=== PATIENT | male | born 1945 | race Caucasian/White ===

== ENCOUNTER 2024-05-11 14:38 | Outpatient (REF) | payer OTHER, SELFPAY ==
[2024-05-11 15:06] LABS: MANUAL DIFF FLAG NO
[2024-05-11 15:24] LABS: Basophils Percent Auto 0.9 % (0-2); Eosinophils Absolute Auto 0.1 X10*3/uL (0.0-0.4); Hematocrit 41.8 % (42.0-52.0); Hemoglobin 13.7 g/dl (14.0-18.0); Imm Gran Abs Auto 0.01 X10*3/uL (0.00-0.03); Imm Gran Pct Auto 0.2 % (0.0-0.4); Lymphocytes Absolute Auto 1.6 X10*3/uL (1.2-4.9); Lymphocytes Percent Auto 36.3 % (20-40); Mean Corpuscular HGB Conc 32.8 g/dl (31.0-36.0); Mean Corpuscular Hemoglobin 29.7 pg (27.0-33.0); Mean Corpuscular Volume 90.7 fL (80.0-98.0); Monocytes Absolute Auto 0.5 X10*3/uL (0.1-1.2); Neutrophils Absolute Auto 2.1 x10*3/uL (2.0-8.3); Neutrophils Percent Auto 47.6 % (45-73); Platelet Count 195 X10*3/uL (160-400); Red Blood Count 4.61 X10*6/uL (4.60-5.80); Red Cell Distribution Width 14.1 % (11.0-16.0); White Blood Count 4.3 X10*3/uL (4.8-10.8)
[2024-05-11 17:12] LABS: Anion Gap 11 (12-20); Blood Urea Nitrogen 12 mg/dL (9-16); Calcium 8.7 mg/dL (8.4-10.2); Carbon Dioxide 25 mmol/L (22-29); Chloride 111 mmol/L (96-108); Estimated Glomerular Filt Rate > 60; Glucose Random 89 mg/dL (60-115); Sodium 143 mmol/L (135-145)
[2024-05-11 17:32] LABS: TSH reflex Free T4 2.34 uIU/mL (0.32-4.0)
[2024-05-11 17:39] LABS: Folate 6.1 ng/mL (> or = 4.0); Vitamin B12 461 pg/mL (200-900)
== END 2024-05-11 14:39 | disposition home or self-care (01) ==
LOC: HO.LAB 14:38
PROVIDERS: PCP Internal Medicine; Visit Provider Psychiatry & Neurology Neurology
DX: G31.84 Mild cognitive impairment of uncertain or unknown etiology (principal)
CPT/HCPCS: 36415; 80048; 82607; 82746; 84443; 85025

== ENCOUNTER 2024-05-30 08:20 | Outpatient (REF) | payer OTHER, SELFPAY ==
--- NOTE | ~2024-05-30 | MR_ITS ---
EXAMINATION: MR BRAIN WITHOUT IV CONTRAST HISTORY: Mild cognitive impairment TECHNIQUE: Sagittal T1, and axial T1, FLAIR, T2, gradient echo, and diffusion weighted MR images of the brain were obtained. COMPARISON: None FINDINGS: There is diffuse prominence of the ventricular system and cortical sulci, consistent with atrophy. There is a fairly similar degree of atrophy in the frontal, parietal, and temporal lobes. Periventricular and subcortical white matter hyperintensities are noted on the FLAIR and T2-weighted images which are nonspecific, but often seen in the setting of small vessel ischemic disease. There is no mass effect or midline shift. There are numerous punctate foci of magnetic susceptibility artifact within the supratentorial compartment bilaterally, compatible with hemosiderin. There is no evidence of acute intracranial hemorrhage.. There are no foci of restricted diffusion. Normal vascular flow voids are noted in the basilar and carotid arteries. The visualized paranasal sinuses are clear. 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 Numerous punctate foci of hemosiderin scattered throughout the supratentorial compartment. Electronically signed by: Tristin Reynoso MD 05/31/2024 11:52 AM EST
== END 2024-05-30 08:21 | disposition home or self-care (01) ==
LOC: HO.MRI 08:20
PROVIDERS: PCP Internal Medicine; Visit Provider Psychiatry & Neurology Neurology
DX: G31.84 Mild cognitive impairment of uncertain or unknown etiology (principal)
CPT/HCPCS: 70551

== ENCOUNTER → 2024-05-30 08:35 | Outpatient (BNV) | payer OTHER, SELFPAY | PROVIDERS: PCP Internal Medicine; Visit Provider Radiology Diagnostic Radiology | DX: G31.9 Degenerative disease of nervous system, unspecified (principal); R90.82 White matter disease, unspecified | CPT/HCPCS: 70551 ==

== ENCOUNTER 2024-11-16 14:51 | Outpatient (AMB) | payer OTHER, SELFPAY ==
--- NOTE | 2024-11-16 14:47 | A.OFFVIS_ITS ---
Intake Visit Reasons: 2m MCI Allergies No Known Allergies Allergy (Verified 11/16/24 14:54) HPI Comments Details: The patient is a 79-year-old male presenting with concerns about memory and cognitive decline. He does not personally sense significant impairment, but family members and colleagues have observed a decrease in his cognitive sharpness over the past few years. The patient was historically adept at navigating unfamiliar areas but recently needed GPS assistance in new locations. He remains functional in his business and daily life. Previous imaging indicated brain atrophy, prompting further evaluation with an upcoming PET scan. There have been no prior treatments or interventions for cognitive issues, and he does not report any new symptoms affecting his job performance. 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 He is still driving fine. He sleeps 6-7 hours a day. He has no sleep apnea. He walks three quarters of a mile to work and has not seen a decline in his work abilities or in his business skills. There is no family history of dementia. Mother lived to 90, and the father in the 80s. ?Nephew, who is a surgical oncologist says he has noted some decline in his cognitive abilities. 06/04/24 EEG- WNL ?05/30/24 MRI : Diffuse cerebral atrophy and microvacsular changes ?05/11/24 Labs normal. 08/31/24 MMSE 27/30, MOCA 14 [facility] Medical History (Updated 11/16/24 @ 15:11 by Nasrin Hurtado MD) Alzheimer disease MCI (mild cognitive impairment) Social History (Updated 11/15/24 @ 17:43 by Monalisa Spann MA) Patient Tobacco Use Status: Never used Tobacco Review of Systems Const Details: ?General/Constitutional:? Change in appetitedenies.? Chillsdenies.? Fatiguedenies.? Feverdenies.? Weight gaindenies.? Weight lossdenies. ???Sleep:? Difficulty getting to sleepdenies.? Difficulty maintaining sleepdenies?.? Urge to move legsdenies.? Teeth grindingdenies.? Shouting or Kicking during sleep denies.? Abnormal behavior during sleepdenies.? Excessive sleepdenies.? Snoring denies.? Daytime sleepinessdenies. ???Respiratory:? Shortness of breathdenies.? Chest paindenies.? Coughdenies. ???Cardiovascular:? Chest pain at restdenies.? Chest pain with exertiondenies.? Claudicationdenies .? Dizzinessdenies.? Fluid accumulation in the legsdenies.? Irregular heartbeat denies.? Palpitationsdenies. ???Gastrointestinal:? Abdominal paindenies.? Constipationdenies.? Diarrheadenies.? Difficulty swallowingdenies.? Heartburndenies.? Nauseadenies.? Rectal bleedingdenies. ???Genitourinary:? Frequent urinationdenies.? Urgencydenies.? Incontinencedenies.? Erectile Dysfunctiondenies. ???Musculoskeletal:? Neck paindenies.? Back paindenies.? Muscle achesdenies.? Painful jointsdenies.? Sciaticadenies.? Weaknessdenies. ???Neurologic:? Difficulty swallowingdenies.? Balance difficultydenies.? Coordinationnormal.? Difficulty speakingdenies.? Dizzinessdenies.? Faintingdenies.? Gait abnormality denies.? Headachedenies.? Loss of strengthdenies.? Loss of use of extremity denies.? Low back paindenies.? Memory lossdenies.? Seizuresdenies.? Ticsdenies.? Tingling/Numbnessdenies.? Transient loss of visiondenies.? Tremordenies. ???Psychiatric:? Anxietydenies.? Auditory/visual hallucinationsdenies.? Delusionsdenies.? Depressed mooddenies.? Stressorsdenies.? Substance abusedenies.? Suicidal thoughtsdenies. Physical Exam Neuro Other: Neurological: Abnormal neurological findings:??none.?Mental Status:??alert and oriented X 3,?Normal attention, orientation, memory and affect.?Cranial Nerves:??Pupils are equal, round and reactive to light. Fundoscopy shows normal disc bilaterally. External occular muscles are intact. Visual murray are full, no ptosis. Face is symmetrical, no facial weakness or droop. Facial sensations are normal. Tongue protrudes in midline. Palate elevates symmetrically. Shoulder shrugging is normal..?Motor Examination:??Normal muscle tone, bulk and strength,?No atrophy or fasciculations,?No drift of the extended upper extremities,?Deep tendon reflexes are 2+?,?Plantars are flexor?.?Straight Leg Raising:??90 degrees.?Sensory Exam:??Normal light touch, temperature, pinprick, vibration and joint-position sensations?,?Rhomberg sign is absent.?Coordination:??no ataxia,?no titubation,?zmklqr-lv-yjtg, oxzw-mnku-xbll test and rapid alternating movements were normal.?Gait Exam:??Within normal limits.?Cerebellar Signs:??Gpmsoq-ak-ttsk and abid-yo-rdro is normal,?no dysdiadochokinesia?.?Ext rapyramidal System:??No tremor, rigidity with normal facial expressions,?No bradykinesia, no bradyphrenia. Normal arm swing and posture. No propulsion or retropulsion.?Speech:??Normal,?no dysphasia or dysarthria..? Mini Mental Status Exam: Level of Consciousness:??Alert.?Orientation:??Knows correct year, month, date, day and season,?Knows correct city, county and state. Knows correct location and floor.?Registration:??Able to register 3 objects.?Attention:??Serial 7's performed accurately.?Recall:??Able to recall 3 out of 3 objects.?Language:??Normal spontaneous speech, fluency, repetition,naming, comprehension, reading and writing.?Total Score:??30/30.? General Examination: GENERAL APPEARANCE:??normal,?in no acute distress.?HEART:??S1, S2 normal,?no murmurs.?LUNGS:??clear anteriorly and posteriorly.?MUSCULOSKELETAL:??normal.?EXTREMITIES:??no edema.?PSYCH:??alert, oriented,?cognitive function intact,?cooperative with exam.? Assessment & Plan Assessment & Plan (1) MCI (mild cognitive impairment): Code(s): G31.84 - Mild cognitive impairment of uncertain or unknown etiology Category: Medical (2) Alzheimer disease: Code(s): G30.9 - Alzheimer's disease, unspecified; F02.80 - Dementia in other diseases classified elsewhere, unspecified severity, without behavioral disturbance, psychotic disturbance, mood disturbance, and anxiety Category: Medical Plan PET scan is scheduled for 11/22/24. Nephew Ryan will coordinate intake interview. Coding Level of Care Code Est Pt Level 4 (52809) Diagnoses MCI (mild cognitive impairment) G31.84 Alzheimer disease G30.9; F02.80
--- OUTSIDE RECORDS SUMMARY | 2024-11-16 15:35 | XMS_ITS | Clinical Summary ---
Author Organization [address] Address [address] [place] [address] Phone Care Team Providers Care Manager Car Name Role Phone Chintan Moralez Primary Care Provider [phone] Social History Tobacco Use Types Packs/Day Years Used Date Smoking Tobacco: Never Assessed Sex and Gender Information Value Date Recorded Sex Assigned at Not on file Legal Sex Male 11:51 AM EST Gender Identity Not on file Sexual Orientation Not on file Plan of Treatment Health Maintenance Due Date Last Done Comments DTaP,Tdap,and Td Vaccines (1 - Tdap) 10/22/1966 Pneumococcal Vaccine: 50+ Ye ars (1 of 1 - PCV) 10/22/1997 Zoster Vaccines (1 of 2) 10/22/1997 Depression Screening 04/09/2022 Falls Risk Assessment 04/09/2022 Hepatitis C Screening 04/09/2022 Social Influencers of Health Screening 04/09/2022 RSV Immunization Adult Patie nts (1 - 1-dose 75+ series) 10/22/2022 COVID-19 Vaccine ( - 2023-2 5 season) 2024 Influenza Vaccine (#1) 2025 Cholesterol Screening (Lipid Panel) 06/22/2029 06/22/2024 HIB Vaccines Aged Out No longer eligi ble based on patient's age to complete this topic HPV Vaccines Aged Out No longer eligi ble based on patient's age to complete this topic Hepatitis A Vaccines Aged Out No long er eligible based on patient's age to complete this topic Hepatitis B Vaccines Aged Out No long er eligible based on patient's age to complete this topic IPV Vaccines Aged Out No longer eligi ble based on patient's age to complete this topic MMR Vaccines Aged Out No longer eligi ble based on patient's age to complete this topic Meningococcal ACWY Vaccine Aged Out N o longer eligible based on patient's age to complete this topic Meningococcal B Vaccine Aged Out No l onger eligible based on patient's age to complete this topic RSV Immunization Patients Un michele 20 months Aged Out No longer eligible b ased on patient's age to complete this topic Varicella Vaccines Aged Out No longer eligible based on patient's age to complete this topic Procedures Procedure Name Priority Date/Time Associated Diagnosis Comments LIPID PANEL WITH REFLEX TO DIRECT LDL Routine 06/22/2024 12:00 AM EST Benign prostatic hyperplasia without lower urinary tract symptoms Vitamin B12 deficiency 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 Encounter for screening for malignant neoplasm of prostate Hyperlipidemia, unspecified Vitamin D deficiency, unspecified Other fatigue from Last 3 Months or Most Recently Relevant to Health Maintenance Results * (ABNORMAL) Lipid panel with reflex to direct LDL (06/22/2024 12:00 AM EST) Cholesterol 218(H) 0 - 200 mg/dL LAB CHEMISTRY METHOD 06/22/2024 7:40 PM [facility] Triglycerides 113 0 - 150 mg/dL LAB CHEMISTRY METHOD 06/22/2024 7:40 PM [facility] HDL 44 >=40 mg/dL LAB CHEMISTRY METHOD 06/22/2024 7:40 PM [facility] LDL Calculated 151(H) 0 - 100 mg/dL LAB CHEMISTRY METHOD 06/22/2024 7:40 PM [facility] VLDL Cholesterol Desmond 22.6 mg/dL LAB CHEMISTRY METHOD 06/22/2024 7:40 PM [facility] Non HDL Chol. (LDL+VLDL) 174(H) <145 mg/dL LAB CHEMISTRY METHOD 06/22/2024 7:40 PM [facility] Chol/HDL Ratio 5.0(H) 0.0 - 4.4 LAB CHEMISTRY METHOD 06/22/2024 7:40 PM [facility] Blood Venous blood specimen / Unknown 06/22/2024 06/22/2024 5:57 PM EST Chitnan BUTLER LAB BLOOD ORDERABLES Final Res ult [facility] [address] [place] [address], from Last 3 Months or Most Recently Relevant to Health Maintenance Insurance MEDICARE [facility] [address] [place] [address] Care Teams Manager Car Relationship Specialty Start Date End Date Chintan Moralez PA [address] [address] PCP - General Primary Care 06/22/24
--- OUTSIDE RECORDS SUMMARY | 2024-11-16 15:35 | XMS_ITS | Patient Health Record ---
Author Organization [facility] Address [address] [place] [address] Care Team Providers Care Tow Driver Name Role Phone Dominik Lemon MD Primary Care Provider Unav ailable Lakeisha Montes Unavailable [phone] Allergies Allergen (clinical drug ingredient) Drug/Non Drug Allergy documented on EMR Reaction Allergy Type Onset Date Status Shellfish (FN) shrimp,shellfish (uncoded) Unknown Allergy Active Reason For Referral No Information Social History Tobacco Use: Social History Observation Description Date Details (start date - stop date) Former Smoker NA - NA Tobacco Use/Smoking Question Answer Notes Are you a: former smoker Additional Findings: Tobacco User Heavy cigarett e smoker (20-39 cigs/day) Additional Findings: Tobacco Non-User Current no n-smoker Alcohol Screen Question Answer Notes Did you have a drink containing alcohol in the p ast year? Yes Points 0 Interpretation Negative Tobacco use other than smoking: Question Answer Notes Are you an other tobacco user? 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
--- OUTSIDE RECORDS SUMMARY | 2024-11-16 15:35 | XMS_ITS | Clinical Summary ---
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); Parkinson's disease without dyskinesia or fluctuating manifestations (HCC); 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 (HCC); Vitamin B12 deficiency (non anemic) 09/24/2024 2:00 PM EDT Evaluation [facility] [address] [place] [phone] Sanchez Rodriguez MA 09/17/2024 1:30 PM EDT Office Visit [facility] [address] [place] [phone] Nikki Grace NP MCI (mild cognitive impairment) (Primary Dx) from Last 3 Months Family History Medical History Relation Name Comments Heart disease Mother Relation Name Status Comments Father Mother Social History Tobacco Use Types Packs/Day Years Used Date Smoking Tobacco: Never Smokeless Tobacco: Never Tobacco Cessation:Counseling Given: Not Answered Alcohol Use Standard Drinks/Week Comments Yes 0 (1 standard drink = 0.6 oz pur e alcohol) Sex and Gender Information Value Date Recorded Sex Assigned at Male 09/08/2024 10:56 AM EDT Legal Sex Male 10:48 AM EDT Gender Identity Male 09/08/2024 10:56 AM EDT Sexual Orientation Not on file Last Filed Vital Signs Vital Sign Reading Time Taken Comments Blood Pressure 137/73 09/24/2024 2:49 PM EDT Pulse 58 09/24/2024 2:49 PM EDT Temperature 36.8 C (98.3 F) 09/24/2024 2:49 PM EDT Respiratory Rate 18 09/24/2024 2:49 PM EDT Oxygen Saturation 97% 09/17/2024 3:13 PM EDT Inhaled Oxygen Concentration - - Weight 86.2 kg (190 lb) 09/17/2024 3:13 PM EDT Height 172.7 cm (5' 8 ) 09/17/2024 3:13 PM EDT Body Mass Index 28.89 09/17/2024 3:13 PM EDT Plan of Treatment Health Maintenance Due Date Last Done Comments Hepatitis C Screening 1945 DTaP,Tdap,and Td Vaccines (1 - Tdap) 10/22/1969 Pneumococcal Vaccine: 50+ Ye ars (1 of 1 - PCV) 10/22/1997 Zoster Vaccines (1 of 2) 10/22/1997 RSV Vaccine (60+ years old a nd patients) (1 - 1-dose 75+ series) 10/22/2022 COVID-19 Vaccine ( - 2023-2 5 season) 2024 Alcohol/Substance Use Screening 05/12/2024 Depression Screening and Follow-Up 05/12/2024 Health Care Proxy Review 05/12/2024 Social Drivers of Health Darlin ual Screening 05/12/2024 Influenza Vaccine (#1) 2025 Hepatitis B Vaccines Aged Out No long er eligible based on patient's age to complete this topic Procedures * Due to [place] [employer] law, this organization might not be sharing negative HIV tests. Procedure Name Priority Date/Time Associated Diagnosis Comments TSH Routine 09/24/2024 1:50 PM EDT MCI (mild cognitive impairment) SYPHILIS ANTIBODY W/REFLEX TO RPR (DIAGNOSIS) TITER & CONFIRMATION Routine 09/24/2024 1:50 PM EDT MCI (mild cognitive impairment) from Last 3 Months Results * Due to [place] [employer] law, this organization might not be sharing negative HIV tests. * Syphilis Antibody w/Reflex to RPR (Diagnosis) Titer & Confirmation (09/24/2024 1:50 PM EDT) T. Pallidum AB NEGATIVE NEGATIVE 09/27/2024 11:08 PM EDT [facility] Comment: No antibodies to T. pallidum (the agent causing syphilis) were detected in the specimen. This result, however, does not exclude very recent T. pallidum infection; testing of a second specimen, collected 2-4 weeks after this specimen, is recommended if the index of suspicion for recent infection is high. Blood Structure of peripheral vein / Unknown Venipuncture / Unknown 09/24/2024 1:50 PM EDT 09/24/2024 2:48 PM EDT Narrative [facility] - 09/27/2024 11:08 PM EDT [facility] Received Date:[id number] us Kaitlynn Nuñez MD LAB BLOOD ORDERABLES Final Res ult [facility] [address] [facility] [address], [place] [address], [place] [phone] Photo Rankr [facility] [address] [facility] [address] Floor, [place] [address], [place] [phone] * TSH (09/24/2024 1:50 PM EDT) TSH 1.920 0.280 - 3.890 uIU/mL 09/24/2024 3:31 PM EDT [facility] Blood Structure of peripheral vein / Unknown Venipuncture / Unknown 09/24/2024 1:50 PM EDT 09/24/2024 2:49 PM EDT us Kaitlynn Nuñez MD LAB BLOOD ORDERABLES Final Res ult [facility] [address] [place] [address], from Last 3 Months Insurance [facility] Care Teams Metal Bonding Press Operator Relationship Specialty Start Date End Date Dominik Lemon [address] [place] [id number] PCP - General Internal Medicine 09/08/24
== END 2024-11-16 15:18 | disposition home or self-care (01) ==
PROVIDERS: PCP Internal Medicine; Visit Provider Psychiatry & Neurology Neurology
DX: G30.9 Alzheimer's disease, unspecified (principal); F02.80 Dementia in other diseases classified elsewhere, unspecified severity, without behavioral disturbance, psychotic disturbance, mood disturbance, and anxiety
CPT/HCPCS: 99214

== ENCOUNTER 2025-01-25 15:03 | Outpatient (AMB) | payer OTHER, SELFPAY ==
--- NOTE | 2025-01-25 14:48 | A.OFFVIS_ITS ---
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 He is now home since 01/24/25 with 24 hr care. Is getting better. He is on ASA and Plavix. The patient is a 79-year-old male presenting with concerns about memory and cogn itive decline. He does not personally sense significant impairment, but family members and colleagues have observed a decrease in his cognitive sharpness over the past few years. The patient was historically adept at navigating unfamiliar areas but recently needed GPS assistance in new locations. He remains functional in his business and daily life. Previous imaging indicated brain atrophy, prompt ing further evaluation with an upcoming PET scan. There have been no prior treatments or interventions for cognitive issues, and he does not report any new symptoms affecting his job performance. 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 He is still driving fine. He sleeps 6-7 hours a day. He has no sleep apnea. He walks three quarters of a mile to work and has not seen a decline in his work abilities or in his business skills. There is no family history of dementia. Mother lived to 90, and the father in the 80s. ?Nephew, who is a surgical oncologist says he has noted some decline in his cognitive abilities. 06/04/24 EEG- WNL ?05/30/24 MRI : Diffuse cerebral atrophy and microvacsular changes ?05/11/24 Labs normal. 08/31/24 MMSE 27/30, MOCA 14 [facility] Medical History (Updated 01/25/25 @ 15:33 by Nasrin Hurtado MD) Alzheimer disease MCI (mild cognitive impairment) Social History (Updated 11/15/24 @ 17:43 by Monalisa Spann MA) Patient Tobacco Use Status: Never used Tobacco Physical Exam Neuro Other: Neurological: Abnormal neurological findings:??Mental Status:??alert and oriented X person an d place but not to month. He knows the year but not the date. He is quite forgetful and repetitive with short-term memory problems 1/3 recall.?Normal attention, and affect.?Cranial Nerves:??Pupils are equal, round and reactive to light. Fundoscopy shows normal disc bilaterally. External occular muscles are intact. Visual murray are full, no ptosis. Face is symmetrical, no facial weakness or droop. Facial sensations are normal. Tongue protrudes in midline. Palate elevates symmetrically. Shoulder shrugging is normal..?Motor Examination:??Subtle downward drift of the left upper extremity with weakness of the left service director. Normal muscle tone, bulk and strength otherwise,?No atrophy or fasciculations,??Deep tendon reflexes are 2+?,?Plantars are flexor?.?Straight Leg Raising:??90 degrees.?Sensory Exam:??Normal light touch, temperature, pinprick, vibration and joint-position sensations?,?he is in a wheelchair. He gets around with a walker at home with supervision.?Coordination:??no ataxia,?no titubation,?ilabgr-vj-[id number] mildly impaired on the left, gyts-klaj-vphj test and rapid alternating movements were normal.?Gait Exam:? Wheelchair.?Cerebellar Signs:??Extrapyramidal System:??No tremor, rigidity with normal facial expressions,?No bradykinesia, no bradyphrenia. Normal arm swing and posture. ?Speech:??Normal,?no dysphasia or dysarthria..? Mini Mental Status Exam: Level of Consciousness:??Alert.?Orientation:??Knows correct year only, not day and season,?Knows correct city, county and state. Knows correct location and floor.?Registration:??Able to register 3 objects.?Attention:??Serial 7's performed accurately.?Recall:??Able to recall 1 out of 3 objects.?Language:??Normal spontaneous speech, fluency, repetition,naming, comprehension, reading and writing.?Total Score:??24/30.? General Examination: GENERAL APPEARANCE:??normal,?in no acute distress.?HEART:??S1, S2 normal,?no murmurs.?LUNGS:??clear anteriorly and posteriorly.?MUSCULOSKELETAL:??normal.?EXTREMITIES:??no edema.?PSYCH:??alert, oriented,?cognitive function intact,?cooperative with exam.? Cognition (Neuro): abnormal cognition Results Reviewed Results Reviewed: 12/02/24 PET scan shows moderate to frequent amyloid plaques. Assessment & Plan Assessment & Plan (1) Alzheimer disease: Code(s): G30.9 - Alzheimer's disease, unspecified; F02.80 - Dementia in other diseases classified elsewhere, unspecified severity, without behavioral disturbance, psychotic disturbance, mood disturbance, and anxiety Category: Medical (2) Stroke: Code(s): I63.9 - Cerebral infarction, unspecified Category: Medical Plan Records from [facility] regarding thalamic stroke. Continue current meds. He needs 24 hour supervision. No driving. Went over the results of his PET scan with the family. He has not been informed fully. Coding Level of Care Code Est Pt Level 4 (25536) Diagnoses Alzheimer disease G30.9; F02.80 Stroke I63.9
--- OUTSIDE RECORDS SUMMARY | 2025-01-25 18:36 | XMS_ITS | Clinical Summary ---
Author Organization [facility] Address [address] [place] [address] Care Team Providers Care Freight Loader Name Role Phone Dominik Lemon Primary Care Provider Allergies No known active allergies Medications carbidopa-levodo pa ER/CR (SINEMET ER/CR) 50-200 mg tablet Take 1 tablet by mouth 2 times a day. 60 tablet 11 09/24/2024 Active Active Problems Problem Noted Date Diagnosed Date Alzheimer's disease 09/24/2024 Family History Medical History Relation Name Comments [...] patients) (1 - 1-dose 75+ series) 10/22/2022 Alcohol/Substance Use Screening 05/12/2024 Depression Screening and Follow-Up 05/12/2024 Health Care Proxy Review 05/12/2024 Social Drivers of Health Darlin ual Screening 05/12/2024 COVID-19 Vaccine (1 - 2023-2 5 season) 2025 Influenza Vaccine (#1) 2025 Hepatitis B Vaccines Aged Out No long er eligible based on patient's age to complete this topic Insurance [facility] Care Teams Freight Loader Relationship Specialty Start Date End Date Dominik Lemon [address] [place] [id number] PCP - General Internal Medicine 09/08/24
--- OUTSIDE RECORDS SUMMARY | 2025-01-25 18:37 | XMS_ITS ---
Author Name [facility] Organization Unknown Care Team Organization Name Specialty Phone Email Start Date End Da te [facility] 11/27/202311/2023 [facility] 03/19/2022
--- OUTSIDE RECORDS SUMMARY | 2025-01-25 18:37 | XMS_ITS | Encounter Summary ---
Author Organization [facility] Address [address] [place] [address] Care Team Providers Care Purchasing Administrative Assistant Name Role Phone Chintan Moralez Primary Care Provider [phone] Encounter Details Date Type Department Care Team (Late st Contact Info) Description 01/21/2025 Lab Requisition [facility] [address] [facility] [place] [address] Amandeep Yap PA [address] [facility] [address] [place] [address] Encounter for other general examination Social History Tobacco Use Types Packs/Day Years Used Date Smoking Tobacco: Never Assessed Sex and Gender Information Value Date Recorded Sex Assigned at Not on file Legal Sex Male 11:51 AM EST Gender Identity Not on file Sexual Orientation Not on file documented as of this encounter Plan of Treatment Not on file documented as of this encounter Procedures Procedure Name Priority Date/Time Associated Diagnosis Comments CBC WITH AUTO DIFFERENTIAL Routine 01/21/2025 5:25 AM EDT Encounter for other general examination CBC AND DIFFERENTIAL Routine 01/21/2025 5:25 AM EDT Encounter for other general examination THYROID STIMULATING HORMONE Routine 01/21/2025 5:25 AM EDT Encounter for other general examination COMPREHENSIVE METABOLIC PANEL Routine 01/21/2025 5:25 AM EDT Encounter for other general examination documented in this encounter Results * (ABNORMAL) CBC auto differential (01/21/2025 5:25 AM EDT) [facility] WBC 5.0 4.8 - 10.8 K/mcL LAB HEMETOLOGY METHOD 01/21/2025 10:45 AM [facility] RBC 4.50 4.50 - 5.50 M/mcL LAB HEMETOLOGY METHOD 01/21/2025 10:45 AM [facility] Hemoglobin 13.1(L) 13.5 - 17.5 g/dL LAB HEMETOLOGY METHOD 01/21/2025 10:45 AM [facility] Hematocrit 40.5(L) 42.0 - 54.0 % LAB HEMETOLOGY METHOD 01/21/2025 10:45 AM [facility] MCV 90.6 79.0 - 98.0 FL LAB HEMETOLOGY METHOD 01/21/2025 10:45 AM [facility] MCH 29.3 27.0 - 32.0 pcg LAB HEMETOLOGY METHOD 01/21/2025 10:45 AM [facility] MCHC 32.3 32.0 - 37.0 g/dL LAB HEMETOLOGY METHOD 01/21/2025 10:45 AM [facility] RDW 13.5 11.0 - 15.0 % LAB HEMETOLOGY METHOD 01/21/2025 10:45 AM [facility] Platelets 367 130 - 400 K/[facility] LAB HEMETOLOGY METHOD 01/21/2025 10:45 AM [facility] MPV 11.2(H) 7.0 - 11.0 FL LAB HEMETOLOGY METHOD 01/21/2025 10:45 AM [facility] NRBC 0.0 <1.0 % LAB HEMETOLOGY METHOD 01/21/2025 10:45 AM [facility] NRBC Absolute 0.00 <0.10 K/[facility] LAB HEMETOLOGY METHOD 01/21/2025 10:45 AM [facility] Neutrophils Relative 63.4 % LAB HEMETOLOGY METHOD 01/21/2025 10:45 AM [facility] Lymphocytes Relative 22.0 % LAB HEMETOLOGY METHOD 01/21/2025 10:45 AM [facility] Monocytes Relative 11.0 % LAB HEMETOLOGY METHOD 01/21/2025 10:45 AM [facility] Eosinophils Relative 2.2 % LAB HEMETOLOGY METHOD 01/21/2025 10:45 AM [facility] Basophils Relative 0.8 % LAB HEMETOLOGY METHOD 01/21/2025 10:45 AM [facility] Immature Granulocytes Relative 0.6 % LAB HEMETOLOGY METHOD 01/21/2025 10:45 AM [facility] Neutrophils Absolute 3.17 1.50 - 7.00 K/mcL LAB HEMETOLOGY METHOD 01/21/2025 10:45 AM [facility] Lymphocytes Absolute 1.10 1.00 - 5.00 K/mcL LAB HEMETOLOGY METHOD 01/21/2025 10:45 AM [facility] Monocytes Absolute 0.55 0.20 - 1.00 K/mcL LAB HEMETOLOGY METHOD 01/21/2025 10:45 AM [facility] Eosinophils Absolute 0.11 0.00 - 0.50 K/mcL LAB HEMETOLOGY METHOD 01/21/2025 10:45 AM [facility] Basophils Absolute 0.04 0.00 - 0.20 K/mcL LAB HEMETOLOGY METHOD 01/21/2025 10:45 AM [facility] Immature Granulocytes Absolute 0.03 0.00 - 0.03 K/mcL LAB HEMETOLOGY METHOD 01/21/2025 10:45 AM [facility] Blood Venous blood specimen / Unknown Venipuncture / Unknown 01/21/2025 5:25 AM EDT 01/21/2025 9:21 AM EDT Amandeep BUTLER LAB BLOOD ORDERABLES Final R esult [facility] [address] [place] [address], [place] [phone] * Thyroid stimulating hormone (01/21/2025 5:25 AM EDT) TSH 1.55 0.40 - 4.00 mcIU/mL LAB CHEMISTRY METHOD 01/21/2025 12:04 PM EDT [facility] Blood Venous blood specimen / Unknown Venipuncture / Unknown 01/21/2025 5:25 AM EDT 01/21/2025 9:21 AM EDT Amandeep BUTLER LAB BLOOD ORDERABLES Final R esult [facility] [address] [place] [address], [place] [phone] * (ABNORMAL) Comprehensive metabolic panel (01/21/2025 5:25 AM EDT) Pathologist [facility] Sodium 137 133 - 145 mmol/L LAB CHEMISTRY METHOD 01/21/2025 11:25 AM EDT [facility] Potassium 5.1 3.5 - 5.5 mmol/L LAB CHEMISTRY METHOD 01/21/2025 11:25 AM EDT [facility] Chloride 102 96 - 110 mmol/L LAB CHEMISTRY METHOD 01/21/2025 11:25 AM EDT [facility] CO2 28 21 - 32 mmol/L LAB CHEMISTRY METHOD 01/21/2025 11:25 AM EDT [facility] Anion Gap 7 3 - 11 LAB CHEMISTRY METHOD 01/21/2025 11:25 AM EDT [facility] Glucose 86 70 - 100 mg/dL LAB CHEMISTRY METHOD 01/21/2025 11:25 AM [facility] BUN 23 5 - 25 mg/dL LAB CHEMISTRY METHOD 01/21/2025 11:25 AM [facility] Creatinine 1.21 0.70 - 1.30 mg/dL LAB CHEMISTRY METHOD 01/21/2025 11:25 AM [facility] eGFR 62 >=60 mL/min/1. 73m2 LAB CHEMISTRY METHOD 01/21/2025 11:25 AM [facility] Comment:Calculation based on the Chronic Kidney Disease Epidemiology Collaboration (CKD-EPI) equation refit without adjustment for race. BUN/Creatinine Ratio 19.0 LAB CHEMISTRY METHOD 01/21/2025 11:25 AM [facility] Calcium 9.0 8.5 - 10.5 mg/dL LAB CHEMISTRY METHOD 01/21/2025 11:25 AM [facility] AST (SGOT) 41 10 - 42 unit/L LAB CHEMISTRY METHOD 01/21/2025 11:25 AM [facility] ALT (SGPT) 87(H) 10 - 60 unit/L LAB CHEMISTRY METHOD 01/21/2025 11:25 AM [facility] Comment:Results verified by repeat testing Alkaline Phosphatase 67 42 - 121 unit/L LAB CHEMISTRY METHOD 01/21/2025 11:25 AM [facility] Total Protein 6.3 6.0 - 8.0 g/dL LAB CHEMISTRY METHOD 01/21/2025 11:25 AM [facility] Albumin 3.2 3.2 - 5.0 g/dL LAB CHEMISTRY METHOD 01/21/2025 11:25 AM [facility] Total Bilirubin 0.4 0.0 - 1.4 mg/dL LAB CHEMISTRY METHOD 01/21/2025 11:25 AM [facility] Blood Venous blood specimen / Unknown Venipuncture / Unknown 01/21/2025 5:25 AM EDT 01/21/2025 9:21 AM EDT us Amandeep BUTLER LAB BLOOD ORDERABLES Final R esult [facility] [address] [place] [address], documented in this encounter Visit Diagnoses Diagnosis Encounter for other general examination documented in this encounter Care Teams Purchasing Administrative Assistant Relationship Specialty Start Date End Date Chintan Moralez PA [address] [address] PCP - General Primary Care 06/22/24 documented as of this encounter
--- OUTSIDE RECORDS SUMMARY | 2025-01-25 18:37 | XMS_ITS | Clinical Summary ---
Author Organization [address] Address [address] [place] [address] Phone Care Team Providers Care Bread Jockey Name Role Phone Chintan Moralez Primary Care Provider [phone] Encounters Date Type Department Care Team Description 01/23/2025 Lab Requisition [facility] [address] [place] [phone] Stephanie Bradley PA Encounter for other general examination 01/21/2025 Lab Requisition [facility] [address] [place] [phone] Amandeep Yap PA Encounter for other general examination 01/06/2025 Lab Requisition [facility] [address] [place] [phone] Farhat Wang PA Encounter for other general examination from Last 3 Months Social History Tobacco Use Types Packs/Day Years Used Date Smoking Tobacco: Never Assessed Sex and Gender Information Value Date Recorded Sex Assigned at Not on file Legal Sex Male 11:51 AM EST Gender Identity Not on file Sexual Orientation Not on file Plan of Treatment Health Maintenance Due Date Last Done Comments Diabetes: Annual Foot Exam 10/22/1957 Diabetes: Annual Retina Eye Exam 10/22/1957 DTaP,Tdap,and Td Vaccines (1 - Tdap) 10/22/1966 Pneumococcal Vaccine: 50+ Years (1 of 2 - PCV) 10/22/1966 Zoster Vaccines (1 of 2) 10/22/1997 Falls Risk Assessment 04/09/2022 Hepatitis C Screening 04/09/2022 Social Influencers of Health Screening 04/09/2022 RSV Immunization Adult Patients (1 - 1-dose 75+ series) 10/22/2022 Depression Screening 05/12/2024 Diabetes: Annual Urine Albumin-Creatinine Ratio (uACR) 12/22/2024 COVID-19 Vaccine ( season) 2025 Influenza Vaccine (#1) 2025 Diabetes: Blood Sugar Control Test (HGBA1C) 06/23/2025 12/21/2024 Diabetes: Annual GFR (Glomerular Filtration Rate) 01/21/2026 01/21/2025, 01/06/2025, 12/21/2024, Additional history exists Cholesterol Screening (Lipid Panel) 12/21/2029 12/21/2024, 06/22/2024 HIB Vaccines Aged Out No longer [...] to complete this topic RSV Immunization Patients Under 20 months Aged Out No longer eligible based on patient's age to complete this topic Varicella Vaccines Aged Out No longer eligible based on patient's age to complete this topic Procedures Procedure Name Priority Date/Time Associated Diagnosis Comments CBC WITH AUTO DIFFERENTIAL Routine 01/23/2025 6:36 AM EDT Encounter for other general examination CBC AND DIFFERENTIAL Routine 01/23/2025 6:36 AM EDT Encounter for other general examination CBC WITH AUTO DIFFERENTIAL Routine 01/21/2025 5:25 AM EDT Encounter for other general examination CBC AND DIFFERENTIAL Routine 01/21/2025 5:25 AM EDT Encounter for other general examination THYROID STIMULATING HORMONE Routine 01/21/2025 5:25 AM EDT Encounter for other general examination COMPREHENSIVE METABOLIC PANEL Routine 01/21/2025 5:25 AM EDT Encounter for other general examination CBC WITH AUTO DIFFERENTIAL Routine 01/06/2025 6:35 AM EDT Encounter for other general examination CBC AND DIFFERENTIAL Routine 01/06/2025 6:35 AM EDT Encounter for other general examination MAGNESIUM Routine 01/06/2025 6:35 AM EDT Encounter for other general examination COMPREHENSIVE METABOLIC PANEL Routine 01/06/2025 6:35 AM EDT Encounter for other general examination PROSTATE SPECIFIC ANTIGEN SCREEN Routine 12/21/2024 2:48 PM EDT Encounter for general adult medical examination with abnormal findings Special screening for malignant neoplasm of prostate Diabetes mellitus (CMS/HCC V24, CMS/HCC V28) Magnesium deficiency Hyperlipidemia MAGNESIUM Routine 12/21/2024 2:48 PM EDT Encounter for general adult medical examination with abnormal findings Special screening for malignant neoplasm of prostate Diabetes mellitus (CMS/HCC V24, CMS/HCC V28) Magnesium deficiency Hyperlipidemia HEMOGLOBIN A1C Routine 12/21/2024 2:48 PM EDT Encounter for general adult medical examination with abnormal findings Special screening for malignant neoplasm of prostate Diabetes mellitus (CMS/HCC V24, CMS/HCC V28) Magnesium deficiency Hyperlipidemia COMPLETE BLOOD COUNT Routine 12/21/2024 2:48 PM EDT Encounter for general adult medical examination with abnormal findings Special screening for malignant neoplasm of prostate Diabetes mellitus (CMS/HCC V24, CMS/HCC V28) Magnesium deficiency Hyperlipidemia LIPID PANEL WITH REFLEX TO DIRECT LDL Routine 12/21/2024 2:48 PM EDT Encounter for general adult medical examination with abnormal findings Special screening for malignant neoplasm of prostate Diabetes mellitus (CMS/HCC V24, CMS/HCC V28) Magnesium deficiency Hyperlipidemia COMPREHENSIVE METABOLIC PANEL Routine 12/21/2024 2:48 PM EDT Encounter for general adult medical examination with abnormal findings Special screening for malignant neoplasm of prostate Diabetes mellitus ([facility] V24, [facility] V28) Magnesium deficiency Hyperlipidemia from Last 3 Months Results * (ABNORMAL) CBC auto differential (01/23/2025 6:36 AM EDT) Only the most recent of3 resultswithin the time period is included. WBC 4.0(L) 4.8 - 10.8 K/mcL LAB HEMETOLOGY METHOD 01/23/2025 10:43 AM [facility] RBC 5.00 4.50 - 5.50 M/mcL LAB HEMETOLOGY METHOD 01/23/2025 10:43 AM [facility] Hemoglobin 14.6 13.5 - 17.5 g/dL LAB HEMETOLOGY METHOD 01/23/2025 10:43 AM [facility] Hematocrit 44.9 42.0 - 54.0 % LAB HEMETOLOGY METHOD 01/23/2025 10:43 AM [facility] MCV 90.2 79.0 - 98.0 FL LAB HEMETOLOGY METHOD 01/23/2025 10:43 AM [facility] MCH 29.3 27.0 - 32.0 pcg LAB HEMETOLOGY METHOD 01/23/2025 10:43 AM [facility] MCHC 32.5 32.0 - 37.0 g/dL LAB HEMETOLOGY METHOD 01/23/2025 10:43 AM [facility] RDW 13.3 11.0 - 15.0 % LAB HEMETOLOGY METHOD 01/23/2025 10:43 AM [facility] Platelets 357 130 - 400 K/mcL LAB HEMETOLOGY METHOD 01/23/2025 10:43 AM [facility] MPV 11.5(H) 7.0 - 11.0 FL LAB HEMETOLOGY METHOD 01/23/2025 10:43 AM [facility] NRBC 0.0 <1.0 % LAB HEMETOLOGY METHOD 01/23/2025 10:43 AM [facility] NRBC Absolute 0.00 <0.10 K/mcL LAB HEMETOLOGY METHOD 01/23/2025 10:43 AM [facility] Neutrophils Relative 56.9 % LAB HEMETOLOGY METHOD 01/23/2025 10:43 AM [facility] Lymphocytes Relative 30.0 % LAB HEMETOLOGY METHOD 01/23/2025 10:43 AM [facility] Monocytes Relative 10.5 % LAB HEMETOLOGY METHOD 01/23/2025 10:43 AM [facility] Eosinophils Relative 1.3 % LAB HEMETOLOGY METHOD 01/23/2025 10:43 AM [facility] Basophils Relative 0.8 % LAB HEMETOLOGY METHOD 01/23/2025 10:43 AM [facility] Immature Granulocytes Relative 0.5 % LAB HEMETOLOGY METHOD 01/23/2025 10:43 AM [facility] Neutrophils Absolute 2.28 1.50 - 7.00 K/mcL LAB HEMETOLOGY METHOD 01/23/2025 10:43 AM [facility] Lymphocytes Absolute 1.20 1.00 - 5.00 K/mcL LAB HEMETOLOGY METHOD 01/23/2025 10:43 AM [facility] Monocytes Absolute 0.42 0.20 - 1.00 K/mcL LAB HEMETOLOGY METHOD 01/23/2025 10:43 AM [facility] Eosinophils Absolute 0.05 0.00 - 0.50 K/mcL LAB HEMETOLOGY METHOD 01/23/2025 10:[address] [facility] Basophils Absolute 0.03 0.00 - 0.20 K/[facility] LAB HEMETOLOGY METHOD 01/23/2025 10:[address] [facility] Immature Granulocytes Absolute 0.02 0.00 - 0.03 K/[facility] LAB HEMETOLOGY METHOD 01/23/2025 10:[address] [facility] Blood Venous blood specimen / Unknown Venipuncture / Unknown 01/23/2025 6:36 AM EDT 01/23/2025 9:59 AM EDT Stephanie BUTLER LAB BLOOD ORDERABLES Final Resu lt [facility] [address] [place] [address], [place] [phone] * Thyroid stimulating hormone (01/21/2025 5:25 AM EDT) Pathologist [facility] TSH 1.55 0.40 - 4.00 mcIU/mL LAB CHEMISTRY METHOD 01/21/2025 12:[address] [facility] Blood Venous blood specimen / Unknown Venipuncture / Unknown 01/21/2025 5:25 AM EDT 01/21/2025 9:21 AM EDT Amandeep BUTLER LAB BLOOD ORDERABLES Final R esult [facility] [address] [place] [address], [place] [phone] * (ABNORMAL) Comprehensive metabolic panel (01/21/2025 5:25 AM EDT) Only the most recent of3 resultswithin the time period is included. Sodium 137 133 - 145 mmol/L LAB CHEMISTRY METHOD 01/21/2025 11:[address] [facility] Potassium 5.1 3.5 - 5.5 mmol/L LAB CHEMISTRY METHOD 01/21/2025 11:25 AM [facility] Chloride 102 96 - 110 mmol/L LAB CHEMISTRY METHOD 01/21/2025 11:25 AM [facility] CO2 28 21 - 32 mmol/L LAB CHEMISTRY METHOD 01/21/2025 11:25 AM [facility] Anion Gap 7 3 - 11 LAB CHEMISTRY METHOD 01/21/2025 11:25 AM [facility] Glucose 86 70 - 100 mg/dL LAB CHEMISTRY METHOD 01/21/2025 11:25 AM [facility] BUN 23 5 - 25 mg/dL LAB CHEMISTRY METHOD 01/21/2025 11:25 AM [facility] Creatinine 1.21 0.70 - 1.30 mg/dL LAB CHEMISTRY METHOD 01/21/2025 11:25 AM [facility] eGFR 62 >=60 mL/min/1. 73m2 LAB CHEMISTRY METHOD 01/21/2025 11:25 AM [facility] Comment:Calculation based on the Chronic Kidney Disease Epidemiology Collaboration (CKD-EPI) equation refit without adjustment for race. BUN/Creatinine Ratio 19.0 LAB CHEMISTRY METHOD 01/21/2025 11:25 AM [facility] Calcium 9.0 8.5 - 10.5 mg/dL LAB CHEMISTRY METHOD 01/21/2025 11:25 AM [facility] AST (SGOT) 41 10 - 42 unit/L LAB CHEMISTRY METHOD 01/21/2025 11:25 AM [facility] ALT (SGPT) 87(H) 10 - 60 unit/L LAB CHEMISTRY METHOD 01/21/2025 11:25 AM [facility] Comment:Results verified by repeat testing Alkaline Phosphatase 67 42 - 121 unit/L LAB CHEMISTRY METHOD 01/21/2025 11:25 AM [facility] Total Protein 6.3 6.0 - 8.0 g/dL LAB CHEMISTRY METHOD 01/21/2025 11:[address] [facility] Albumin 3.2 3.2 - 5.0 g/dL LAB CHEMISTRY METHOD 01/21/2025 11:[address] [facility] Total Bilirubin 0.4 0.0 - 1.4 mg/dL LAB CHEMISTRY METHOD 01/21/2025 11:[address] [facility] Blood Venous blood specimen / Unknown Venipuncture / Unknown 01/21/2025 5:25 AM EDT 01/21/2025 9:21 AM EDT Amandeep BUTLER LAB BLOOD ORDERABLES Final R esult Performing Organization Address [facility] Co de Phone Number [facility] [address] [place] [address], * (ABNORMAL) Magnesium (01/06/2025 6:35 AM EDT) Only the most recent of2 resultswithin the time period is included. Magnesium 2.7(H) 1.9 - 2.6 mg/dL LAB CHEMISTRY METHOD 01/06/2025 12:[address] [facility] Blood Venous blood specimen / Unknown Venipuncture / Unknown 01/06/2025 6:35 AM EDT 01/06/2025 11:00 AM EDT Farhat BUTLER LAB BLOOD ORDERABLES Final Res ult Performing Organization Address City/[facility]/ZIP Co de Phone Number [facility] [address] [place] [address], [place] [phone] * Prostate specific antigen screen (12/21/2024 2:48 PM EDT) PSA 2.79 0.00 - 4.00 ng/mL LAB CHEMISTRY METHOD 12/21/2024 7:[address] [facility] Blood Venous blood specimen / Unknown Venipuncture / Unknown 12/21/2024 2:48 PM EDT 12/21/2024 4:[address] [facility] - 12/21/2024 7:41 PM EDT The Siemens Advia Centaur Chemiluminescent Immunoassay is used. Results obtained with different assay methods or kits cannot be used interchangeably. Results cannot be interpreted as absolute evidence of the presence or absence of malignant disease. us [address] [employer] LAB BLOOD ORDERABLES Final Res ult [facility] [address] [place] [address], [place] [phone] * (ABNORMAL) Lipid panel with reflex to direct LDL (12/21/2024 2:48 PM EDT) Cholesterol 252(H) 0 - 200 mg/dL LAB CHEMISTRY METHOD 12/21/2024 6:[address] [facility] Triglycerides 248(H) 0 - 150 mg/dL LAB CHEMISTRY METHOD 12/21/2024 6:19 PM [facility] HDL 39(L) >=40 mg/dL LAB CHEMISTRY METHOD 12/21/2024 6:[address] [facility] LDL Calculated 163(H) 0 - 100 mg/dL LAB CHEMISTRY METHOD 12/21/2024 6:[address] [facility] Comment:Estimated LDL Calcul ated using equation: Total cholesterol - HDL cholesterol - (Triglycerides/5) VLDL Cholesterol Desmond 49.6 mg/dL LAB CHEMISTRY METHOD 12/21/2024 6:[address] [facility] Non HDL Chol. (LDL+VLDL) 213(H) <145 mg/dL LAB CHEMISTRY METHOD 12/21/2024 6:[address] [facility] Chol/HDL Ratio 6.5(H) 0.0 - 4.4 LAB CHEMISTRY METHOD 12/21/2024 6:[address] [facility] Blood Venous blood specimen / Unknown Venipuncture / Unknown 12/21/2024 2:48 PM EDT 12/21/2024 4:[address] [employer] LAB BLOOD ORDERABLES Final Res ult [facility] [address] [place] [address], [place] [phone] * (ABNORMAL) Complete blood count (12/21/2024 2:48 PM EDT) WBC 4.2(L) 4.8 - 10.8 K/mcL LAB HEMETOLOGY METHOD 12/21/2024 4:[address] [facility] RBC 4.70 4.50 - 5.50 M/mcL LAB HEMETOLOGY METHOD 12/21/2024 4:[address] [facility] Hemoglobin 14.0 13.5 - 17.5 g/dL LAB HEMETOLOGY METHOD 12/21/2024 4:[address] [facility] Hematocrit 41.6(L) 42.0 - 54.0 % LAB HEMETOLOGY METHOD 12/21/2024 4:[address] [facility] MCV 88.7 79.0 - 98.0 FL LAB HEMETOLOGY METHOD 12/21/2024 4:[address] [facility] MCH 29.9 27.0 - 32.0 pcg LAB HEMETOLOGY METHOD 12/21/2024 4:[address] [facility] MCHC 33.7 32.0 - 37.0 g/dL LAB HEMETOLOGY METHOD 12/21/2024 4:[address] [facility] RDW 14.3 11.0 - 15.0 % LAB HEMETOLOGY METHOD 12/21/2024 4:[address] [facility] Platelets 214 130 - 400 K/mcL LAB HEMETOLOGY METHOD 12/21/2024 4:[address] [facility] MPV 11.6(H) 7.0 - 11.0 FL LAB HEMETOLOGY METHOD 12/21/2024 4:[address] [facility] NRBC 0.0 <1.0 % LAB HEMETOLOGY METHOD 12/21/2024 4:[address] [facility] NRBC Absolute 0.00 <0.10 K/mcL LAB HEMETOLOGY METHOD 12/21/2024 4:[address] [facility] Blood Venous blood specimen / Unknown Venipuncture / Unknown 12/21/2024 2:48 PM EDT 12/21/2024 4:[address] LAB BLOOD ORDERABLES Final Res ult [facility] [address] [place] [address], * Hemoglobin A1c (12/21/2024 2:48 PM EDT) Hemoglobin A1C 6.1 <6.5 % LAB CHEMISTRY METHOD 12/21/2024 8:[address] [facility] Mean Bld Glu Estim. 128 mg/dL LAB CHEMISTRY METHOD 12/21/2024 8:[address] [facility] Blood Venous blood specimen / Unknown Venipuncture / Unknown 12/21/2024 2:48 PM EDT 12/21/2024 4:[address] [employer] LAB BLOOD ORDERABLES Final Res ult [facility] [address] [place] [address], from Last 3 Months Insurance MEDICARE [facility] [address] [place] [address] Care Teams Bread Jockey Relationship Specialty Start Date End Date Chintan Moralez PA [address] [place] [id number] PCP - General Primary Care 06/22/24
--- OUTSIDE RECORDS SUMMARY | 2025-01-25 18:37 | XMS_ITS | Patient Health Record ---
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
--- OUTSIDE RECORDS SUMMARY | 2025-01-25 18:37 | XMS_ITS | Encounter Summary ---
Author Organization [facility] Address [address] [place] [address] Care Team Providers Care Outsole Caser Name Role Phone Chintan Moralez Primary Care Provider [phone] Encounter Details Date Type Department Care Team (Late st Contact Info) Description 01/06/2025 Lab Requisition [facility] [address] [facility] [place] [address] Farhat Wang PA [address] [place] [phone] Encounter for other general examination Social History [...] Diagnosis Comments CBC WITH AUTO DIFFERENTIAL Routine 01/06/2025 6:35 AM EDT Encounter for other general examination CBC AND DIFFERENTIAL Routine 01/06/2025 6:35 AM EDT Encounter for other general examination MAGNESIUM Routine 01/06/2025 6:35 AM EDT Encounter for other general examination COMPREHENSIVE METABOLIC PANEL Routine 01/06/2025 6:35 AM EDT Encounter for other general examination documented in this encounter Results * (ABNORMAL) CBC auto differential (01/06/2025 6:35 AM EDT) WBC 4.7(L) 4.8 - 10.8 K/mcL LAB HEMETOLOGY METHOD 01/06/2025 11:58 AM [facility] RBC 5.10 4.50 - 5.50 M/mcL LAB HEMETOLOGY METHOD 01/06/2025 11:58 AM [facility] Hemoglobin 14.9 13.5 - 17.5 g/dL LAB HEMETOLOGY METHOD 01/06/2025 11:58 AM [facility] Hematocrit 46.2 42.0 - 54.0 % LAB HEMETOLOGY METHOD 01/06/2025 11:58 AM [facility] MCV 90.8 79.0 - 98.0 FL LAB HEMETOLOGY METHOD 01/06/2025 11:58 AM [facility] MCH 29.3 27.0 - 32.0 pcg LAB HEMETOLOGY METHOD 01/06/2025 11:58 AM [facility] MCHC 32.3 32.0 - 37.0 g/dL LAB HEMETOLOGY METHOD 01/06/2025 11:58 AM [facility] RDW 14.5 11.0 - 15.0 % LAB HEMETOLOGY METHOD 01/06/2025 11:58 AM [facility] Platelets 214 130 - 400 K/[facility] LAB HEMETOLOGY METHOD 01/06/2025 11:58 AM [facility] MPV 11.9(H) 7.0 - 11.0 FL LAB HEMETOLOGY METHOD 01/06/2025 11:58 AM [facility] NRBC 0.0 <1.0 % LAB HEMETOLOGY METHOD 01/06/2025 11:58 AM [facility] NRBC Absolute 0.00 <0.10 K/[facility] LAB HEMETOLOGY METHOD 01/06/2025 11:58 AM [facility] Neutrophils Relative 57.3 % LAB HEMETOLOGY METHOD 01/06/2025 11:58 AM [facility] Lymphocytes Relative 24.1 % LAB HEMETOLOGY METHOD 01/06/2025 11:58 AM [facility] Monocytes Relative 16.3 % LAB HEMETOLOGY METHOD 01/06/2025 11:58 AM [facility] Eosinophils Relative 1.3 % LAB HEMETOLOGY METHOD 01/06/2025 11:58 AM [facility] Basophils Relative 0.6 % LAB HEMETOLOGY METHOD 01/06/2025 11:58 AM [facility] Immature Granulocytes Relative 0.4 % LAB HEMETOLOGY METHOD 01/06/2025 11:58 AM [facility] Neutrophils Absolute 2.66 1.50 - 7.00 K/mcL LAB HEMETOLOGY METHOD 01/06/2025 11:58 AM [facility] Lymphocytes Absolute 1.12 1.00 - 5.00 K/mcL LAB HEMETOLOGY METHOD 01/06/2025 11:58 AM [facility] Monocytes Absolute 0.76 0.20 - 1.00 K/mcL LAB HEMETOLOGY METHOD 01/06/2025 11:58 AM [facility] Eosinophils Absolute 0.06 0.00 - 0.50 K/mcL LAB HEMETOLOGY METHOD 01/06/2025 11:58 AM [facility] Basophils Absolute 0.03 0.00 - 0.20 K/mcL LAB HEMETOLOGY METHOD 01/06/2025 11:58 AM [facility] Immature Granulocytes Absolute 0.02 0.00 - 0.03 K/mcL LAB HEMETOLOGY METHOD 01/06/2025 11:58 AM [facility] Blood Venous blood specimen / Unknown Venipuncture / Unknown 01/06/2025 6:35 AM EDT 01/06/2025 11:00 AM EDT Farhat BUTLER LAB BLOOD ORDERABLES Final Res ult Performing Organization Address [facility]/ZIP Co de Phone Number [facility] [address] [place] [address], [place] [phone] * (ABNORMAL) Magnesium (01/06/2025 6:35 AM EDT) Pathologist [facility] Magnesium 2.7(H) 1.9 - 2.6 mg/dL LAB CHEMISTRY METHOD 01/06/2025 12:40 PM EDT [facility] Blood Venous blood specimen / Unknown Venipuncture / Unknown 01/06/2025 6:35 AM EDT 01/06/2025 11:00 AM EDT Farhat BUTLER LAB BLOOD ORDERABLES Final Res ult Performing Organization Address [facility]/ZIP Co de Phone Number [facility] [address] [place] [address], [place] [phone] * (ABNORMAL) Comprehensive metabolic panel (01/06/2025 6:35 AM EDT) [facility] Sodium 140 133 - 145 mmol/L LAB CHEMISTRY METHOD 01/06/2025 12:42 PM EDT [facility] Potassium 4.3 3.5 - 5.5 mmol/L LAB CHEMISTRY METHOD 01/06/2025 12:42 PM EDT [facility] Chloride 105 96 - 110 mmol/L LAB CHEMISTRY METHOD 01/06/2025 12:42 PM EDT [facility] CO2 27 21 - 32 mmol/L LAB CHEMISTRY METHOD 01/06/2025 12:42 PM EDT [facility] Anion Gap 8 3 - 11 LAB CHEMISTRY METHOD 01/06/2025 12:42 PM EDT [facility] Glucose 96 70 - 100 mg/dL LAB CHEMISTRY METHOD 01/06/2025 12:42 PM [facility] BUN 27(H) 5 - 25 mg/dL LAB CHEMISTRY METHOD 01/06/2025 12:42 PM [facility] Creatinine 0.98 0.70 - 1.30 mg/dL LAB CHEMISTRY METHOD 01/06/2025 12:42 PM [facility] eGFR 79 >=60 mL/min/1. 73m2 LAB CHEMISTRY METHOD 01/06/2025 12:42 PM [facility] Comment:Calculation based on the Chronic Kidney Disease Epidemiology Collaboration (CKD-EPI) equation refit without adjustment for race. BUN/Creatinine Ratio 27.6 LAB CHEMISTRY METHOD 01/06/2025 12:42 PM [facility] Calcium 8.9 8.5 - 10.5 mg/dL LAB CHEMISTRY METHOD 01/06/2025 12:42 PM [facility] AST (SGOT) 16 10 - 42 unit/L LAB CHEMISTRY METHOD 01/06/2025 12:42 PM [facility] ALT (SGPT) 18 10 - 60 unit/L LAB CHEMISTRY METHOD 01/06/2025 12:42 PM [facility] Alkaline Phosphatase 66 42 - 121 unit/L LAB CHEMISTRY METHOD 01/06/2025 12:42 PM [facility] Total Protein 7.2 6.0 - 8.0 g/dL LAB CHEMISTRY METHOD 01/06/2025 12:42 PM [facility] Albumin 4.0 3.2 - 5.0 g/dL LAB CHEMISTRY METHOD 01/06/2025 12:42 PM [facility] Total Bilirubin 0.7 0.0 - 1.4 mg/dL LAB CHEMISTRY METHOD 01/06/2025 12:42 PM [facility] Blood Venous blood specimen / Unknown Venipuncture / Unknown 01/06/2025 6:35 AM EDT 01/06/2025 11:00 AM EDT us Farhat BUTLER LAB BLOOD ORDERABLES Final Res ult [facility] ([facility]) [facility] [address] [place] [address], documented in this encounter Visit Diagnoses Diagnosis Encounter for other general examination documented in this encounter Care Teams Outsole Caser Relationship Specialty Start Date End Date Chintan Moralez PA [address] [address] PCP - General Primary Care 06/22/24 documented as of this encounter
--- OUTSIDE RECORDS SUMMARY | 2025-01-25 18:37 | XMS_ITS | Encounter Summary ---
Author Organization [facility] Address [address] [place] [address] Care Team Providers Care Senior Engineering Specialist Name Role Phone Chintan Moralez Primary Care Provider [phone] Encounter Details Date Type Department Care Team (Late st Contact Info) Description 06/22/2024 Lab Requisition [facility] - Main Lab [address] [facility] [place] [id number] Chintan Moralez PA 299 [facility] [address] [place], [place] [id number] Benign prostatic hyperplasia without lower urinary tract symptoms; Vitamin B12 deficiency 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; Encounter for screening for malignant neoplasm of prostate; Hyperlipidemia, unspecified; Vitamin D deficiency, unspecified; Other fatigue Social History Tobacco Use Types Packs/Day Years [...] Procedure Name Priority Date/Time Associated Diagnosis Comments SST - GOLD Routine 06/22/2024 12:00 AM EST Benign prostatic hyperplasia without lower urinary tract symptoms Vitamin B12 deficiency 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 Encounter for screening for malignant neoplasm of prostate Hyperlipidemia, unspecified Vitamin D deficiency, unspecified Other fatigue LIPID PANEL WITH REFLEX TO DIRECT LDL Routine 06/22/2024 12:00 AM EST Benign prostatic hyperplasia without lower urinary tract symptoms Vitamin B12 deficiency 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 Encounter for screening for malignant neoplasm of prostate Hyperlipidemia, unspecified Vitamin D deficiency, unspecified Other fatigue PROSTATE SPECIFIC ANTIGEN DIAGNOSTIC Routine 06/22/2024 12:00 AM EST Benign prostatic hyperplasia without lower urinary tract symptoms Vitamin B12 deficiency 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 Encounter for screening for malignant neoplasm of prostate Hyperlipidemia, unspecified Vitamin D deficiency, unspecified Other fatigue CBC WITH AUTO DIFFERENTIAL Routine 06/22/2024 12:00 AM EST Benign prostatic hyperplasia without lower urinary tract symptoms Vitamin B12 deficiency 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 Encounter for screening for malignant neoplasm of prostate Hyperlipidemia, unspecified Vitamin D deficiency, unspecified Other fatigue VITAMIN D 25 HYDROXY Routine 06/22/2024 12:00 AM EST Benign prostatic hyperplasia without lower urinary tract symptoms Vitamin B12 deficiency 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 Encounter for screening for malignant neoplasm of prostate Hyperlipidemia, unspecified Vitamin D deficiency, unspecified Other fatigue CBC AND DIFFERENTIAL Routine 06/22/2024 12:00 AM EST Benign prostatic hyperplasia without lower urinary tract symptoms Vitamin B12 deficiency 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 Encounter for screening for malignant neoplasm of prostate Hyperlipidemia, unspecified Vitamin D deficiency, unspecified Other fatigue VITAMIN B12 Routine 06/22/2024 12:00 AM EST Benign prostatic hyperplasia without lower urinary tract symptoms Vitamin B12 deficiency 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 Encounter for screening for malignant neoplasm of prostate Hyperlipidemia, unspecified Vitamin D deficiency, unspecified Other fatigue COMPREHENSIVE METABOLIC PANEL Routine 06/22/2024 12:00 AM EST Benign prostatic hyperplasia without lower urinary tract symptoms Vitamin B12 deficiency 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 Encounter for screening for malignant neoplasm of prostate Hyperlipidemia, unspecified Vitamin D deficiency, unspecified Other fatigue documented in this encounter Results * SST tube (06/22/2024 12:00 AM EST) Extra Tube Hold for add-ons. 06/22/2024 7:01 PM EST [facility] ([facility]) [facility] Comment:Auto resulted. Blood Venous blood specimen / Unknown 06/22/2024 06/22/2024 5:57 PM EST Chintan BUTLER LAB BLOOD ORDERABLES Final Res ult [facility] [address] [place] [address], * (ABNORMAL) CBC auto differential (06/22/2024 12:00 AM EST) WBC 3.6(L) 4.8 - 10.8 K/mcL LAB HEMETOLOGY METHOD 06/22/2024 6:41 PM [facility] RBC 4.50 4.50 - 5.50 M/mcL LAB HEMETOLOGY METHOD 06/22/2024 6:41 PM [facility] Hemoglobin 13.7 13.5 - 17.5 g/dL LAB HEMETOLOGY METHOD 06/22/2024 6:41 PM [facility] Hematocrit 41.8(L) 42.0 - 54.0 % LAB HEMETOLOGY METHOD 06/22/2024 6:41 PM [facility] MCV 92.3 79.0 - 98.0 FL LAB HEMETOLOGY METHOD 06/22/2024 6:41 PM [facility] MCH 30.2 27.0 - 32.0 pcg LAB HEMETOLOGY METHOD 06/22/2024 6:41 PM [facility] MCHC 32.8 32.0 - 37.0 g/dL LAB HEMETOLOGY METHOD 06/22/2024 6:[address] [facility] RDW 13.8 11.0 - 15.0 % LAB HEMETOLOGY METHOD 06/22/2024 6:41 PM [facility] Platelets 195 130 - 400 K/mcL LAB HEMETOLOGY METHOD 06/22/2024 6:41 PM [facility] MPV 11.5(H) 7.0 - 11.0 FL LAB HEMETOLOGY METHOD 06/22/2024 6:41 PM [facility] NRBC 0.0 <1.0 % LAB HEMETOLOGY METHOD 06/22/2024 6:41 PM [facility] NRBC Absolute 0.00 <0.10 K/mcL LAB HEMETOLOGY METHOD 06/22/2024 6:41 PM [facility] Neutrophils Relative 40.7 % LAB HEMETOLOGY METHOD 06/22/2024 6:41 PM [facility] Lymphocytes Relative 31.3 % LAB HEMETOLOGY METHOD 06/22/2024 6:41 PM [facility] Monocytes Relative 25.0 % LAB HEMETOLOGY METHOD 06/22/2024 6:41 PM [facility] Eosinophils Relative 1.9 % LAB HEMETOLOGY METHOD 06/22/2024 6:41 PM [facility] Basophils Relative 1.1 % LAB HEMETOLOGY METHOD 06/22/2024 6:41 PM [facility] Immature Granulocytes Relative 0.0 % LAB HEMETOLOGY METHOD 06/22/2024 6:41 PM [facility] Neutrophils Absolute 1.48(L) 1.50 - 7.00 K/mcL LAB HEMETOLOGY METHOD 06/22/2024 6:41 PM [facility] Lymphocytes Absolute 1.14 1.00 - 5.00 K/mcL LAB HEMETOLOGY METHOD 06/22/2024 6:41 PM [facility] Monocytes Absolute 0.91 0.20 - 1.00 K/mcL LAB HEMETOLOGY METHOD 06/22/2024 6:41 PM [facility] Eosinophils Absolute 0.07 0.00 - 0.50 K/mcL LAB HEMETOLOGY METHOD 06/22/2024 6:41 PM [facility] Basophils Absolute 0.04 0.00 - 0.20 K/mcL LAB HEMETOLOGY METHOD 06/22/2024 6:[address] [facility] Immature Granulocytes Absolute 0.00 0.00 - 0.03 K/mcL LAB HEMETOLOGY METHOD 06/22/2024 6:[address] [facility] Blood Venous blood specimen / Unknown 06/22/2024 06/22/2024 5:57 PM EST Chintan BUTLER LAB BLOOD ORDERABLES Final Res ult [facility] [address] [place] [address], [place] [phone] * (ABNORMAL) Vitamin D 25 hydroxy (06/22/2024 12:00 AM EST) Vit D, 25-Hydroxy 11.9(L) 30.0 - 80.0 ng/mL LAB CHEMISTRY METHOD 06/22/2024 7:[address] [facility] Blood Venous blood specimen / Unknown 06/22/2024 06/22/2024 5:57 PM EST Chintan BUTLER LAB BLOOD ORDERABLES Final Res ult Performing Organization Address City/[facility]/ZIP Co de Phone Number [facility] [address] [place] [address], [place] [phone] * Prostate specific antigen diagnostic (06/22/2024 12:00 AM EST) PSA 2.58 0.00 - 4.00 ng/mL LAB CHEMISTRY METHOD 06/22/2024 7:[address] [facility] Blood Venous blood specimen / Unknown 06/22/2024 06/22/2024 5:[address] [facility] - 06/22/2024 7:23 PM EST The Siemens Advia Centaur Chemiluminescent Immunoassay is used. Results obtained with different assay methods or kits cannot be used interchangeably. Results cannot be interpreted as absolute evidence of the presence or absence of malignant disease. us Chintan BUTLER LAB BLOOD ORDERABLES Final Res ult Performing Organization Address City/[facility]/ZIP Co de Phone Number [facility] [address] [place] [address], [place] [phone] * Vitamin B12 (06/22/2024 12:00 AM EST) [facility] Vitamin B-12 391 250 - 900 pcg/mL LAB CHEMISTRY METHOD 06/22/2024 7:40 PM [facility] Blood Venous blood specimen / Unknown 06/22/2024 06/22/2024 5:57 PM EST Chintan BUTLER LAB BLOOD ORDERABLES Final Res ult Performing Organization Address [facility]/ZIP Co de Phone Number [facility] [address] [place] [address], [place] [phone] * (ABNORMAL) Lipid panel with reflex to direct LDL (06/22/2024 12:00 AM EST) [facility] Cholesterol 218(H) 0 - 200 mg/dL LAB CHEMISTRY METHOD 06/22/2024 7:40 PM [facility] Triglycerides 113 0 - 150 mg/dL LAB CHEMISTRY METHOD 06/22/2024 7:40 PM [facility] HDL 44 >=40 mg/dL LAB CHEMISTRY METHOD 06/22/2024 7:40 PM [facility] LDL Calculated 151(H) 0 - 100 mg/dL LAB CHEMISTRY METHOD 06/22/2024 7:40 PM [facility] VLDL Cholesterol Desmond 22.6 mg/dL LAB CHEMISTRY METHOD 06/22/2024 7:40 PM [facility] Non HDL Chol. (LDL+VLDL) 174(H) <145 mg/dL LAB CHEMISTRY METHOD 06/22/2024 7:40 PM [facility] Chol/HDL Ratio 5.0(H) 0.0 - 4.4 LAB CHEMISTRY METHOD 06/22/2024 7:40 PM [facility] Blood Venous blood specimen / Unknown 06/22/2024 06/22/2024 5:57 PM EST us Chintan BUTLER LAB BLOOD ORDERABLES Final Res ult [facility] [address] [place] [address], [place] [phone] * Comprehensive metabolic panel (06/22/2024 12:00 AM EST) Sodium 138 133 - 145 mmol/L LAB CHEMISTRY METHOD 06/22/2024 7:40 PM [facility] Potassium 4.0 3.5 - 5.5 mmol/L LAB CHEMISTRY METHOD 06/22/2024 7:40 PM [facility] Chloride 105 96 - 110 mmol/L LAB CHEMISTRY METHOD 06/22/2024 7:40 PM [facility] CO2 27 21 - 32 mmol/L LAB CHEMISTRY METHOD 06/22/2024 7:40 PM [facility] Anion Gap 6 3 - 11 LAB CHEMISTRY METHOD 06/22/2024 7:40 PM [facility] Glucose 84 70 - 100 mg/dL LAB CHEMISTRY METHOD 06/22/2024 7:40 PM [facility] BUN 21 5 - 25 mg/dL LAB CHEMISTRY METHOD 06/22/2024 7:40 PM [facility] Creatinine 0.97 0.70 - 1.30 mg/dL LAB CHEMISTRY METHOD 06/22/2024 7:40 PM [facility] eGFR 81 >=60 mL/min/1. 73m2 LAB CHEMISTRY METHOD 06/22/2024 7:40 PM [facility] Comment:Calculation based on the Chronic Kidney Disease Epidemiology Collaboration (CKD-EPI) equation refit without adjustment for race. BUN/Creatinine Ratio 21.6 LAB CHEMISTRY METHOD 06/22/2024 7:40 PM [facility] Calcium 8.8 8.5 - 10.5 mg/dL LAB CHEMISTRY METHOD 06/22/2024 7:40 PM [facility] AST (SGOT) 16 10 - 42 unit/L LAB CHEMISTRY METHOD 06/22/2024 7:40 PM [facility] ALT (SGPT) 25 10 - 60 unit/L LAB CHEMISTRY METHOD 06/22/2024 7:40 PM [facility] Alkaline Phosphatase 64 42 - 121 unit/L LAB CHEMISTRY METHOD 06/22/2024 7:40 PM [facility] Total Protein 6.9 6.0 - 8.0 g/dL LAB CHEMISTRY METHOD 06/22/2024 7:40 PM [facility] Albumin 3.8 3.2 - 5.0 g/dL LAB CHEMISTRY METHOD 06/22/2024 7:40 PM [facility] Total Bilirubin 0.5 0.0 - 1.4 mg/dL LAB CHEMISTRY METHOD 06/22/2024 7:40 PM [facility] Blood Venous blood specimen / Unknown 06/22/2024 06/22/2024 5:57 PM EST us Chintan BUTLER LAB BLOOD ORDERABLES Final Res ult [facility] [address] [place] [address], [place] [phone] documented in this encounter Visit Diagnoses Diagnosis Benign prostatic hyperplasia without lower urinary tract symptoms Vitamin B12 deficiency 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 Pernicious anemia Encounter for screening for malignant neoplasm of prostate Hyperlipidemia, unspecified Vitamin D deficiency, unspecified Other fatigue documented in this encounter Care Teams Senior Engineering Specialist Relationship Specialty Start Date End Date Chintan Moralez PA [address] [place] [id number] PCP - General Primary Care 06/22/24 documented as of this encounter
--- OUTSIDE RECORDS SUMMARY | 2025-01-25 18:37 | XMS_ITS | Encounter Summary ---
Author Organization [facility] Address [address] [place] [address] Care Team Providers Care Lead Driver Name Role Phone Chintan Moralez Primary Care Provider [phone] Encounter Details Date Type Department Care Team (Late st Contact Info) Description 01/23/2025 Lab Requisition [facility] - Main Lab [address] [facility] [place] [address] Stephanie Bradley PA [address] [place] [address] Encounter for other general examination Social History [...] encounter Results * (ABNORMAL) CBC auto differential (01/23/2025 6:36 AM EDT) WBC 4.0(L) 4.8 - 10.8 K/[facility] LAB HEMETOLOGY METHOD 01/23/2025 10:43 AM EDT [facility] RBC 5.00 4.50 - 5.50 M/[facility] LAB HEMETOLOGY METHOD 01/23/2025 10:43 AM [facility] Hemoglobin 14.6 13.5 - 17.5 g/dL LAB HEMETOLOGY METHOD 01/23/2025 10:43 AM [facility] Hematocrit 44.9 42.0 - 54.0 % LAB HEMETOLOGY METHOD 01/23/2025 10:43 AM [facility] MCV 90.2 79.0 - 98.0 FL LAB HEMETOLOGY METHOD 01/23/2025 10:43 AM [facility] MCH 29.3 27.0 - 32.0 pcg LAB HEMETOLOGY METHOD 01/23/2025 10:43 AM [facility] MCHC 32.5 32.0 - 37.0 g/dL LAB HEMETOLOGY METHOD 01/23/2025 10:43 AM [facility] RDW 13.3 11.0 - 15.0 % LAB HEMETOLOGY METHOD 01/23/2025 10:43 AM [facility] Platelets 357 130 - 400 K/mcL LAB HEMETOLOGY METHOD 01/23/2025 10:43 AM [facility] MPV 11.5(H) 7.0 - 11.0 FL LAB HEMETOLOGY METHOD 01/23/2025 10:43 AM [facility] NRBC 0.0 <1.0 % LAB HEMETOLOGY METHOD 01/23/2025 10:43 AM [facility] NRBC Absolute 0.00 <0.10 K/mcL LAB HEMETOLOGY METHOD 01/23/2025 10:43 AM [facility] Neutrophils Relative 56.9 % LAB HEMETOLOGY METHOD 01/23/2025 10:43 AM [facility] Lymphocytes Relative 30.0 % LAB HEMETOLOGY METHOD 01/23/2025 10:43 AM EDT [facility] Monocytes Relative 10.5 % LAB HEMETOLOGY METHOD 01/23/2025 10:43 AM EDT [facility] Eosinophils Relative 1.3 % LAB HEMETOLOGY METHOD [facility]25 [facility] Basophils Relative 0.8 % LAB HEMETOLOGY METHOD 01/23/2025 10:43 AM EDT [facility] Immature Granulocytes Relative 0.5 % LAB HEMETOLOGY METHOD 01/23/2025 10:43 AM EDT [facility] Neutrophils Absolute 2.28 1.50 - 7.00 K/mcL LAB HEMETOLOGY METHOD 01/23/2025 10:43 AM [facility] Lymphocytes Absolute 1.20 1.00 - 5.00 K/mcL LAB HEMETOLOGY METHOD 01/23/2025 10:[facility] Monocytes Absolute 0.42 0.20 - 1.00 K/mcL LAB HEMETOLOGY METHOD 01/23/2025 10:[facility] Eosinophils Absolute 0.05 0.00 - 0.50 K/mcL LAB HEMETOLOGY METHOD 01/23/2025 10:43 AM [facility] Basophils Absolute 0.03 0.00 - 0.20 K/mcL LAB HEMETOLOGY METHOD 01/23/2025 10:[facility] Immature Granulocytes Absolute 0.02 0.00 - 0.03 K/mcL LAB HEMETOLOGY METHOD 01/23/2025 10:43 AM [facility] Blood Venous blood specimen / Unknown Venipuncture / Unknown 01/23/2025 6:36 AM EDT 01/23/2025 9:59 AM EDT us Stephanie BUTLER LAB BLOOD ORDERABLES Final Resu lt [facility] ([facility] HOSPITAL LAB [address] [place] [address], documented in this encounter Visit Diagnoses Diagnosis Encounter for other general examination documented in this encounter Care Teams Lead Driver Relationship Specialty Start Date End Date Chintan Moralez PA [address] [address] PCP - General Primary Care 06/22/24 documented as of this encounter
== END 2025-01-25 15:34 | disposition home or self-care (01) ==
LOC: HO.HSM 15:03
PROVIDERS: PCP Internal Medicine; Visit Provider Psychiatry & Neurology Neurology
DX: G30.9 Alzheimer's disease, unspecified (principal); F02.80 Dementia in other diseases classified elsewhere, unspecified severity, without behavioral disturbance, psychotic disturbance, mood disturbance, and anxiety; I63.9 Cerebral infarction, unspecified
CPT/HCPCS: 99214

== ENCOUNTER 2025-03-23 14:26 | Outpatient (AMB) | payer OTHER, SELFPAY ==
--- OUTSIDE RECORDS SUMMARY | 2024-02-04 03:30 | XMS_ITS ---
Author Organization [facility] [place] Address [address] [facility] [place] [address] Care Team Providers Care Independent Sales Representative Name Role Phone Ave Mendes Primary Care Provider [phone] Migration, Provider Unavailable Unavailable REASON FOR VISIT Injection Encounters Encounter Location Date Provider Diagnosis [address] [place] [address] 02/04/2024 Provider Migration Plan Of Treatment Next Appt Details Provider Name:Ave law, 03/24/2025 11:00:00 AM, [address] [place] [address], Suite [facility], [place], [address], [phone] Provider Name:Irina Osman, 04/26/2025 01:00:00 PM, [address] [place] [address], Suite [facility], [place], [address], [phone] Progress Notes * GHANSHYAM DORAJENNYOB:[birth year] (79 yo M)Acc No.[id number]:02/04/2024 Progress Notes Patient: ESTEFANY RAMOS Provider: Darlene ag Migration :1945 A ge:78 Y S ex:Male Date:02/04/2024 Phone: Address:[address] [place] [address], [place], [place] Pcp:Ave Mendes Subjective: * Chief Complaints: * I njection * Ocular Surgical History: Objective: Vision Examination: * Electronic signature of Prov ider Migration on 03/23/2025 at 05:52 PM EST Sign off status: Pending * Provider: Darlene ag Migration Date: 0 02/04/2024 Generated for Emiliano ley/Melissa/Jony on: 1 05/23/2024 05:52 PM EST
--- OUTSIDE RECORDS SUMMARY | 2024-03-08 10:15 | XMS_ITS ---
Author Organization [facility] [place] Address [address] [place] [address] Care Team Providers Care Supervisor Dyer Name Role Phone Ave Mendes Primary Care Provider [phone] Migration, Provider Unavailable Unavailable REASON FOR VISIT Injection Encounters Encounter Location Date Provider Diagnosis [address] [place] [phone] 03/08/2024 Provider Migration Plan Of Treatment Next Appt Details Provider Name:Ave law, 03/24/2025 11:00:00 AM, [address], Suite [facility], [place], [address], [phone] Provider Name:Irina Osman, 04/26/2025 01:00:00 PM, [address] [place] [address], Suite [facility], [place], [address], [phone] Progress Notes * GHANSHYAM DORAJENNYOB:[birth year] (79 yo M)Acc No.[id number]:03/08/2024 Progress Notes Patient: ESTEFANY RAMOS Provider: Darlene ag Migration :1945 A ge:78 Y S ex:Male Date:03/08/2024 Phone: Address:[address] [place] [address], [place], [place] Pcp:Ave Mendes Subjective: * Chief Complaints: * I njection * Ocular Surgical History: Objective: Vision Examination: * Electronic signature of Prov ider Migration on 03/23/2025 at 05:52 PM EST Sign off status: Pending * Provider: Darlene Olvera Date: Generated for Emiliano ley/Melissa/Jony on: 1 05/23/2024 05:52 PM EST
--- OUTSIDE RECORDS SUMMARY | 2024-04-12 08:45 | XMS_ITS ---
Author Organization [facility] [place] Address [address] [place] [address] Care Team Providers Care Mechanical Systems Design Engineer Name Role Phone Ave Mendes Primary Care Provider [phone] Migration, Provider Unavailable Unavailable REASON FOR VISIT H1N1 INJECTION Encounters Encounter Location Date Provider Diagnosis [place] [address] [place] [phone] 04/12/2024 Provider Migration Plan Of Treatment Next Appt Details Provider Name:Ave law, 03/24/2025 11:00:00 AM, [address], Suite [facility], [place], [address], [phone] Provider Name:Irina Osman, 04/26/2025 01:00:00 PM, [address] [place] [address], Suite [facility], [place], [address], [phone] Progress Notes * NICOLÁS MORRISSEYOB:[birth year] (79 yo M)Acc No.[id number]:04/12/2024 Progress Notes Patient: ESTEFANY RAMOS Provider: Darlene ag Migration :1945 A ge:78 Y S ex:Male Date:04/12/2024 Phone: Address:[address] [place] [address], [place], [place] Pcp:Ave Mendes Subjective: * Chief Complaints: * H 1N1 INJECTION * Ocular Surgical History: Objective: Vision Examination: * Electronic signature of Prov ider Migration on 03/23/2025 at 05:53 PM EST Sign off status: Pending * Provider: Darlene ag Migration Date: 06/13/2023 Generated for Emiliano ley/Melissa/Jony on: 1 05/23/2024 05:53 PM EST
--- OUTSIDE RECORDS SUMMARY | 2024-05-13 04:00 | XMS_ITS ---
Author Organization [facility] [place] Address [address] [place] [address] Care Team Providers Care Hotel Casino Floorperson Name Role Phone Ave Mendes Primary Care Provider [phone] Migration, Provider Unavailable Unavailable REASON FOR VISIT H1N1 INJECTION Encounters Encounter Location Date Provider Diagnosis [address] [place] [address] 05/13/2024 Provider Migration Plan Of Treatment Next Appt Details Provider Name:Ave law, 03/24/2025 11:00:00 AM, [address], Suite [facility], [place], [address], [phone] Provider Name:Irina Osman, 04/26/2025 01:00:00 PM, [address] [place] [address], Suite [facility], [place], [address], [phone] Progress Notes * NICOLÁS MORRISSEYOB:[birth year] (79 yo M)Acc No.[id number]:05/13/2024 Progress Notes Patient: ESTEFANY RAMOS Provider: Darlene ag Migration :1945 A ge:78 Y S ex:Male Date:05/13/2024 Phone: Address:[address] [place] [address], [place], [place] Pcp:Ave Mendes Subjective: * Chief Complaints: * H 1N1 INJECTION * Ocular Surgical History: Objective: Vision Examination: * Electronic signature of Prov ider Migration on 03/23/2025 at 05:53 PM EST Sign off status: Pending * Provider: Darlene ag Migration Date: 0 05/13/2024 Generated for Emiliano ley/Melissa/Jony on: 1 05/23/2024 05:53 PM EST
--- OUTSIDE RECORDS SUMMARY | 2024-05-18 09:30 | XMS_ITS ---
Author Organization [facility] [place] Address [address] [facility] [address] [place] [address] Care Team Providers Care Hotel Custodian Name Role Phone Ave Mendes Primary Care Provider [phone] Migration, Provider Unavailable Unavailable REASON FOR VISIT Follow-up Appt Encounters Encounter Location Date Provider Diagnosis [address] [place] [phone] 05/18/2024 Provider Migration Plan Of Treatment Next Appt Details Provider Name:Ave law, 03/24/2025 11:00:00 AM, [address], Suite [facility], [place], [address], [phone] Provider Name:Irina Osman, 04/26/2025 01:00:00 PM, [address] [place] [address], Suite [facility], [place], [address], [phone] Progress Notes * NICOLÁS MORRISSEYOB:[birth year] (79 yo M)Acc No.[id number]:05/18/2024 Progress Notes Patient: ESTEFANY RAMOS Provider: Darlene ag Migration :1945 A ge:78 Y S ex:Male Date:05/18/2024 Phone: Address:[address] [place] [address], [place] Pcp:Ave Mendes Subjective: * Chief Complaints: * F ollow-up Appt * Ocular Surgical History: Objective: Vision Examination: * Electronic signature of Prov ider Migration on 03/23/2025 at 05:53 PM EST Sign off status: Pending * Provider: P rovider Migration Date: 0 05/18/2024 Generated for Emiliano ley/Melissa/Jony on: 1 05/23/2024 05:53 PM EST
--- OUTSIDE RECORDS SUMMARY | 2024-06-22 06:15 | XMS_ITS ---
Author Organization [facility] [place] Address [address] [place] [address] Care Team Providers Care Retail Assistant Manager Name Role Phone Ave Mendes Primary Care Provider [phone] Migration, Provider Unavailable Unavailable REASON FOR VISIT Follow-up Appt Encounters Encounter Location Date Provider Diagnosis [place] [address] [place] [address] 06/22/2024 Provider Migration Plan Of Treatment Next Appt Details Provider Name:Ave law, 03/24/2025 11:00:00 AM, [address], Suite [facility], [place], [address], [phone] Provider Name:Irina Osman, 04/26/2025 01:00:00 PM, [address] [facility], Suite [facility], [place], [address], [phone] Progress Notes * NICOLÁS MORRISSEYOB:[birth year] (79 yo M)Acc No.[id number]:06/22/2024 Progress Notes Patient: ESTEFANY RAMOS Provider: Darlene ag Migration :1945 A ge:78 Y S ex:Male Date:06/22/2024 Phone: Address:[address] [place] [address], [place] Pcp:Ave Mendes Subjective: * Chief Complaints: * F ollow-up Appt * Ocular Surgical History: Objective: Vision Examination: * Electronic signature of Prov ider Migration on 03/23/2025 at 05:53 PM EST Sign off status: Pending * Provider: P rovider Migration Date: 0 06/22/2024 Generated for Emiliano ley/Melissa/Jony on: 1 05/23/2024 05:53 PM EST
--- OUTSIDE RECORDS SUMMARY | 2024-06-22 06:15 | XMS_ITS ---
Author Organization [facility] [place] Address [address] [place] [address] Care Team Providers Care Line Up Examiner Name Role Phone Ave Mendes Primary Care Provider [phone] Chintan Moralez Unavailable [phone] REASON FOR VISIT Follow-up Appt Encounters Encounter Location Date Provider Diagnosis [facility], [address] [place] [address] 06/22/2024 Chintan Moralez Plan Of Treatment Next Appt Details Provider Name:Ave law, 03/24/2025 11:00:00 AM, [address] [facility], Suite [facility], [place], [address], [phone] Provider Name:Irinaher Osman, 04/26/2025 01:00:00 PM, [address] [place] [address], Suite [facility], [place], [address], [phone] Progress Notes * NICOLÁS MORRISSEYOB:[birth year] (79 yo M)Acc No.[id number]:06/22/2024 Progress Notes Patient: ESTEFANY RAMOS Provider: Lan BUTLER :1945 A ge:78 Y S ex:Male Date:06/22/2024 Phone: Address:[address] [place] [address], [place], [place] Pcp:Ave Mendes Subjective: * Chief Complaints: * F ollow-up Appt * Ocular Surgical History: Objective: Vision Examination: * Electronic signature of Ralph Moralez PA-C on 03/23/2025 at 05:53 PM EST Sign off status: Pending * Provider: Lan BUTLER Date: 0 06/22/2024 Generated for Emiliano ley/Melissa/Jony on: 1 05/23/2024 05:53 PM EST
--- OUTSIDE RECORDS SUMMARY | 2025-02-02 05:00 | XMS_ITS ---
Author Organization [facility] [place] Address [address] [place] [address] Care Team Providers Care Grinding Operator Name Role Phone Ave Mendes Primary Care Provider [phone] REASON FOR VISIT HOSPITAL FU DC 9.15, Patient indicates low appetite and curious about prognosis after stroke. Social History Section Notes: wine-ocassional no tobacco, drug or caffeine use. Problems Problem Type SNOMED Code ICD Code Onset Dates Problem Status W/U Status Risk Notes Problem Cerebral infarction (986285857) Stroke with cerebral ischemia (I63.9) Active confirmed Vital Signs Blood pressure systolic 112 mm Hg 02/03/20 25 Blood pressure diastolic 55 mm Hg 025 Heart Rate 75 /min 02/02/2025 Respiratory Rate 18 /min 02/02/2025 Oximetry 100 % 02/02/2025 Encounters Encounter Location Date Provider Diagnosis [facility], [address] [address] 02/02/[facility] and Stroke with cerebral ischemia I63.9 Assessments Encounter Date Diagnosis (ICD Code) Assessment Notes Treatment Notes Treatment Clinical Notes Section Notes 02/02/2025 Hospital discharge follow-up (ICD-10 - Z09) Patient into the office today for f/u of hospitilazion s/p stroke states he was admitted at [facility]. We have been trying for two days to obtain his medical record.. Will continue to try. 1. He was sent to [facility] in [place] following his hospital treatment 2. He has continued issues with short term memory which is affecting his safety at home 3. He has 24 hour care but has had some episodes of aggressive behavior. 02/02/2025 Stroke with cerebral ischemia (ICD-10 - I63.9) Patient into the office today for f/u of hospitilazion s/p stroke states he was admitted at [facility]. We have been trying for two days to obtain his medical record.. Will continue to try. 1. He was sent to [facility] in [place] following his hospital treatment 2. He has continued issues with short term memory which is affecting his safety at home 3. He has 24 hour care but has had some episodes of aggressive behavior. Plan Of Treatment Next Appt Details Provider Name:Ave law, 03/24/2025 11:00:00 AM, [address], [address], [place], [address], [phone] Provider Name:Irina Dawson, 04/26/2025 01:00:00 PM, [address], [address], [place], [address], [phone] History and Physical Notes * Examination Category Sub-Category Detail Notes Category Not es General Examination General appearance: alert, p leasant, well-nourished and in no acute distress, elderly, male Heart: regular rate and rhy thm without murmurs, gallops, clicks or rubs, S1 and S2 are normal and no S3 and S4 gallop Lungs: clear to auscultatio n bilaterally, with good air movement and no rales, rhonchi or wheezes Progress Notes * NICOLÁS MORRISSEYOB:[birth year] (79 yo M)Acc No.[id number]:02/02/2025 Progress Notes Patient: ESTEFANY RAMOS Provider: Rachael Mendes :1945 A ge:79 Y S ex:Male Date:02/02/2025 Phone: Address:[address] [place] [address], [phone] Subjective: * Chief Complaints: * H OSPITAL FU DC 9.15.25Patient indicates low appetite and curious about prognosis after stroke. * Medical History: Hyperlipidemia Gout * Surgical History: appendectomy * Family History: No Healthcare Proxy. * Social History: w ine-ocassional no tobacco, drug or caffeine use. Objective: * Vitals: B P: 112/55 mm Hg, HR: 75 /min, RR: 18 /min, Oxygen sat %: 100 %. * Examination: G eneral Examination: General appearance: a lert, pleasant, well-nourished and in no acute distress, elderly, male. Heart: r egular rate and rhythm without murmurs, gallops, clicks or rubs, S1 and S2 are normal and no S3 and S4 gallop. Lungs: c lear to auscultation bilaterally, with good air movement and no rales, rhonchi or wheezes. Assessment: * Assessment: 1. H ospital discharge follow-up - Z09 (Primary) 2 . S troke with cerebral ischemia - I63.9 Patient into the office brandon nava for f/u of hospitilazion s/p stroke states he was admitted at [facility]. We have been trying for two days to obtain h is medical record.. Will continue to try. 1. He was sent to [facility] in [place] following his hospital treatment 2. He has continued issues with short term memory which is affecting his safety at home 3. He has 24 hour care but has had some episodes of aggressive behavior. * Electronic signature of Saul Mendes on 03/23/2025 at 05:53 PM EST Sign off status: Pending * Provider: Rachael Mendes Date: 0 02/02/2025 Generated for Emiliano ley/Melissa/Jaydaitting on: 05/23/2024 05:53 PM EST
--- OUTSIDE RECORDS SUMMARY | 2025-03-04 05:45 | XMS_ITS ---
Author Organization [facility] [place] Address [address] [facility] [address] [place] [address] Care Team Providers Care Print Decorator Name Role Phone Ave Mendes Primary Care Provider [phone] REASON FOR VISIT annual Medications Medication SIG (Take, Route, Frequency, Duration) Notes Start Date End Date Status traZODone HCl 50 MG Tablet 1 tablet at b edtime as needed Orally Once a day; Duration: 90 days 02/04/2025 Active Aspirin 81 MG Tablet Chewable 1 tablet Orally Once a day; Duration: 90 days 02/04/2025 Active traZODone HCl 50 MG Tablet take 1/2 tab along with 50mg at bedtime as needed Orally Once a day; Duration: 90 days 02/24/2025 Active Atorvastatin Calcium 40 MG Tablet 1 tablet Orally Once a day; Duration: 90 days 02/04/2025 Active QUEtiapine Fumarate 25 MG Tablet 1 tablet Orally 3 times a day; Duration: 90 days 02/04/2025 Active Lisinopril 20 MG Tablet 1 tablet Orally Once a day; Duration: 90 days 02/04/2025 Active Mirtazapine 15 MG Tablet 1 tablet at bed time Orally Once a day; Duration: 90 days 02/04/2025 Active Docusate Sodium 100 MG Capsule 1 capsule as needed Orally Once a day; Duration: 90 days 02/04/2025 01/30/2026 Active Lansoprazole 30 MG Capsule Delayed Release 1 capsule 1/2 to 1 hour before morning meal Orally Once a day; Duration: 90 days 02/04/2025 Active Encounters Encounter Location Date Provider Diagnosis [facility], [address] [address] 03/04/2025 [address] [facility] Plan Of Treatment Next Appt Details Provider Name:Ave Gomez Laurasumit thanh, 03/24/2025 11:00:00 AM, [address] [facility], [address], [place], [address], [phone] Provider Name:Irina Dawson, 04/26/2025 01:00:00 PM, [address] [facility], [address], [place], [address], [id number] Progress Notes * RUSSELLSHANINICOLÁSOB:[birth year] (79 yo M)Acc No.[id number]:03/04/2025 Progress Notes Patient: DORA RAMOSNATHAN Provider: Rachael Mendes :1945 A ge:79 Y S ex:Male Date:03/04/2025 Phone: Address:[address] [place] [address], [place] [id number] Subjective: * Chief Complaints: * A nnual * Ocular Surgical History: * Medications: T akingAspirin 81 MG Tablet Chewable 1 tablet Orally Once a day Atorvastatin Calcium 40 MG Tablet 1 tablet Orally Once a day Docusate Sodium 100 MG Capsule 1 capsule as needed Orally Once a day , stop date 01/30/2026Lisinopril 20 MG Tablet 1 tablet Orally Once a day Mirtazapine 15 MG Tablet 1 tablet at bedtime Orally Once a day Lansoprazole 30 MG Capsule Delayed Release 1 capsule 1/2 to 1 hour before morning meal Orally Once a day QUEtiapine Fumarate 25 MG Tablet 1 tablet Orally 3 times a day traZODone HCl 50 MG Tablet 1 tablet at bedtime as needed Orally Once a day traZODone HCl 50 MG Tablet take 1/2 tab along with 50mg at bedtime as needed Orally Once a day Taking Aspirin 81 MG Tablet Chewable 1 tablet Orally Once a day Taking Atorvastatin Calcium 40 MG Tablet 1 tablet Orally Once a day Taking Docusate Sodium 100 MG Capsule 1 capsule as needed Orally Once a day , stop date 01/30/2026Taking Lisinopril 20 MG Tablet 1 tablet Orally Once a day Taking Mirtazapine 15 MG Tablet 1 tablet at bedtime Orally Once a day Taking Lansoprazole 30 MG Capsule Delayed Release 1 capsule 1/2 to 1 hour before morning meal Orally Once a day Taking QUEtiapine Fumarate 25 MG Tablet 1 tablet Orally 3 times a day Taking traZODone HCl 50 MG Tablet 1 tablet at bedtime as needed Orally Once a day Taking traZODone HCl 50 MG Tablet take 1/2 tab along with 50mg at bedtime as needed Orally Once a day Objective: Vision Examination: * Electronic signature of Saul Mendes on 03/23/2025 at 05:52 PM EST Sign off status: Pending * Provider: Rachael Mendes Date: Generated for Emiliano ley/Melissa/Jony on: 05/23/2024 05:52 PM EST
--- OUTSIDE RECORDS SUMMARY | 2025-03-21 19:00 | XMS_ITS | Clinical Summary ---
Author Organization Unknown Care Team Providers Care Tool Checker Name Role Phone ALYSSA TRACK REPAIRER HELPER, THOMAS Unavailable Unavailable [facility] ([facility]) [facility] - PT, SHORTY Unavailable Unavailable JAILYN RN, HARJINDER Unavailable Unavailable ROM DERRICK HELPER, STELLA Unavailable Unavailable FREED OT, SHIVAM Unavailable Unavailable Payers Payer Name Policy Type Policy Number Effective Date Expira tion Date MEDICARE - [facility] - PD [id number] Problems Condition Name Condition Details Condition Category Status Onset Date Resolution Date Last Treatment Date Treating Clinician Comments MEMORY DEFICIT FOLLOWING CEREBRAL INFARCTION Active 05-12 00:00: 00 ESSENTIAL (PRIMARY) HYPERTENSION Active 05-12 00:00: 00 PARKINSON'S DIS W/O DYSKINESIA, W/O MENTION OF FLUCTUATIONS Active 05-12 00:00: 00 ALZHEIMER'S DISEASE, UNSPECIFIED Active 05-12 00:00: 00 DEM IN OTHER DIS CLASSD ELSWHR, UNSP SEVERT, WITH AGITATION Active 05-12 00:00: 00 HYPERLIPIDEM IA, UNSPECIFIED Active 05-12 00:00: 00 METABOLIC ENCEPHALOPAT HY Active 05-12 00:00: 00 ANEMIA, UNSPECIFIED Active 05-12 00:00: 00 FPC (CURRENT) USE OF ASPIRIN Active 05-12 00:00: 00 OTHER FPC (CURRENT) DRUG THERAPY Active 05-12 00:00: 00 Problems related to health literacy Active 05-12 00:00: 00 Allergies, Adverse Reactions, Alerts Allergy Name Allergy Type Status Severity Reaction(s) Onset Date Inactive Date Treating Clinician Comments NKA Propensity to adverse reactions Active 2025-01 21:35:4 6 Medications Ordered Medication Name Filled Medication Name Start Date Stop Date Current Medication? Ordering Clinician Indication Dosage Frequency Signature (SIG) Comments Components acetaminoph en 325 mg tablet 01-26 00:00: 00 Yes [id number] 2 tablet EVERY 4 HOURS 2 tablet EVERY 4 HOURS (route: oral) Med Classific ation: Analgesic , Anti-infl ammatory or Antipyret ic aspirin 81 mg tablet 01-26 00:00: 00 Yes [id number] 1 tablet DAILY 1 tablet DAILY (route: oral) Med Classific ation: Hematolog ical Agents atorvastati n 40 mg tablet 01-26 00:00: 00 Yes [id number] 1 tablet DAILY 1 tablet DAILY (route: oral) Med Classific ation: Cardiovas cular Therapy Agents docusate sodium 100 mg tablet 01-26 00:00: 00 Yes [id number] 1 tablet 2 TIMES DAILY 1 tablet 2 TIMES DAILY (route: oral) Med Classific ation: Gastroint estinal Therapy Agents lansoprazol e 30 mg capsule,del ayed release 01-26 00:00: 00 Yes [id number] 1 capsule DAILY 1 capsule DAILY (route: oral) Med Classific ation: Gastroint estinal Therapy Agents lisinopril 20 mg tablet 01-26 00:00: 00 Yes [id number] 1 tablet DAILY 1 tablet DAILY (route: oral) Med Classific ation: Cardiovas cular Therapy Agents mirtazapine 15 mg tablet 01-26 00:00: 00 Yes [id number] 1 tablet BEDTIME 1 tablet BEDTIME (route: oral) Med Classific ation: Central Nervous System Agents quetiapine 25 mg tablet 01-26 00:00: 00 Yes [id number] 1 tablet 3 TIMES DAILY 1 tablet 3 TIMES DAILY (route: oral) Med Classific ation: Central Nervous System Agents trazodone 50 mg tablet 01-26 00:00: 00 Yes [id number] 1 tablet EVERY PM 1 tablet EVERY PM (route: oral) Med Classific ation: Central Nervous System Agents olanzapine 10 mg tablet 2024-05 1-04 00:00: 00 Yes [id number] 1 tablet DAILY 1 tablet DAILY (route: oral) Med Classific ation: Central Nervous System Agents Vital Signs Vital Name Observation Time Observation Value Commen ts Temperature 2025-03-22 15:38:00.000 97.2 [degF] Temperature 2025-03-14 15:18:00.000 97.4 [degF] Temperature 2025-03-14 13:39:00.000 97.7 [degF] Temperature 2025-03-07 13:13:00.000 97.5 [degF] Temperature 2025-03-07 11:44:00.000 98 [degF] Temperature 2025-03-02 15:21:00.000 98.9 [degF] Temperature 2025-02-28 14:55:00.000 98.7 [degF] Temperature 2025-02-28 13:14:00.000 97.9 [degF] Temperature 2025-02-24 15:23:00.000 98.2 [degF] Temperature 2025-02-24 13:08:00.000 98.4 [degF] Temperature 2025-02-23 12:41:00.000 97.3 [degF] Temperature 2025-02-17 15:15:00.000 98 [degF] Temperature 2025-02-17 11:45:00.000 98.1 [degF] Temperature 2025-02-14 12:06:00.000 98.2 [degF] Temperature 2025-02-10 10:05:00.000 97.7 [degF] Temperature 2025-02-07 13:28:00.000 97.5 [degF] Temperature 2025-02-06 11:26:00.000 97.4 [degF] Temperature 2025-02-04 10:22:00.000 98.6 [degF] Temperature 2025-02-03 16:08:00.000 97.8 [degF] Temperature 2025-02-02 15:20:00.000 97.5 [degF] Temperature 2025-01-31 12:16:00.000 97.3 [degF] Temperature 2025-01-28 16:20:00.000 97.7 [degF] Temperature 2025-01-26 10:37:00.000 97.4 [degF] BMI (%) 2025-01-26 10:37:00.000 27 kg/m2 Height 2025-01-26 10:37:00.000 64 [in_us] Pulse 2025-03-22 15:38:00.000 88 /min Pulse 2025-03-14 15:18:00.000 76 /min Pulse 2025-03-14 13:39:00.000 72 /min Pulse 2025-03-07 13:13:00.000 76 /min Pulse 2025-03-07 11:44:00.000 86 /min Pulse 2025-03-02 15:21:00.000 82 /min Pulse 2025-02-28 14:55:00.000 80 /min Pulse 2025-02-28 13:14:00.000 72 /min Pulse 2025-02-24 15:23:00.000 66 /min Pulse 2025-02-24 13:08:00.000 66 /min Pulse 2025-02-23 12:41:00.000 84 /min Pulse 2025-02-17 15:15:00.000 80 /min Pulse 2025-02-17 11:45:00.000 70 /min Pulse 2025-02-14 12:06:00.000 64 /min Pulse 2025-02-10 10:05:00.000 62 /min Pulse 2025-02-07 13:28:00.000 72 /min Pulse 2025-02-06 11:26:00.000 83 /min Pulse 2025-02-04 10:22:00.000 85 /min Pulse 2025-02-03 16:08:00.000 97 /min Pulse 2025-02-02 15:20:00.000 92 /min Pulse 2025-01-31 12:16:00.000 72 /min Pulse 2025-01-28 16:20:00.000 106 /min Pulse 2025-01-26 10:37:00.000 76 /min O2 Saturation (%) 2025-03-22 15:38:00.000 99 % O2 Saturation (%) 2025-03-14 15:18:00.000 99 % O2 Saturation (%) 2025-03-14 13:39:00.000 100 % O2 Saturation (%) 2025-03-07 13:13:00.000 99 % O2 Saturation (%) 2025-03-07 11:44:00.000 99 % O2 Saturation (%) 2025-03-02 15:21:00.000 96 % O2 Saturation (%) 2025-02-28 14:55:00.000 96 % O2 Saturation (%) 2025-02-28 13:14:00.000 96 % O2 Saturation (%) 2025-02-24 15:23:00.000 98 % O2 Saturation (%) 2025-02-24 13:08:00.000 96 % O2 Saturation (%) 2025-02-23 12:41:00.000 97 % O2 Saturation (%) 2025-02-17 15:15:00.000 96 % O2 Saturation (%) 2025-02-17 11:45:00.000 99 % O2 Saturation (%) 2025-02-14 12:06:00.000 98 % O2 Saturation (%) 2025-02-10 10:05:00.000 96 % O2 Saturation (%) 2025-02-07 13:28:00.000 97 % O2 Saturation (%) 2025-02-06 11:26:00.000 98 % O2 Saturation (%) 2025-02-04 10:22:00.000 97 % O2 Saturation (%) 2025-02-03 16:08:00.000 97 % O2 Saturation (%) 2025-02-02 15:20:00.000 98 % O2 Saturation (%) 2025-01-31 12:16:00.000 100 % O2 Saturation (%) 2025-01-28 16:20:00.000 94 % O2 Saturation (%) 2025-01-26 10:37:00.000 96 % Respirations 2025-03-22 15:38:00.000 16 /min Respirations 2025-03-14 15:18:00.000 16 /min Respirations 2025-03-14 13:39:00.000 18 /min Respirations 2025-03-07 13:13:00.000 18 /min Respirations 2025-03-07 11:44:00.000 18 /min Respirations 2025-03-02 15:21:00.000 18 /min Respirations 2025-02-28 14:55:00.000 18 /min Respirations 2025-02-28 13:14:00.000 18 /min Respirations 2025-02-24 15:23:00.000 18 /min Respirations 2025-02-24 13:08:00.000 18 /min Respirations 2025-02-23 12:41:00.000 18 /min Respirations 2025-02-17 15:15:00.000 18 /min Respirations 2025-02-17 11:45:00.000 18 /min Respirations 2025-02-14 12:06:00.000 18 /min Respirations 2025-02-10 10:05:00.000 18 /min Respirations 2025-02-07 13:28:00.000 18 /min Respirations 2025-02-06 11:26:00.000 18 /min Respirations 2025-02-04 10:22:00.000 18 /min Respirations 2025-02-03 16:08:00.000 18 /min Respirations 2025-02-02 15:20:00.000 18 /min Respirations 2025-01-31 12:16:00.000 18 /min Respirations 2025-01-28 16:20:00.000 18 /min Respirations 2025-01-26 10:37:00.000 20 /min Weight (lbs) 2025-01-26 10:37:00.000 162 [lb_av] Systolic Blood Pressure 2025-03-22 15:38:00.000 108 mm [Hg] Systolic Blood Pressure 2025-03-14 15:18:00.000 120 mm [Hg] Systolic Blood Pressure 2025-03-14 13:39:00.000 96 mm[ Hg] Systolic Blood Pressure 2025-03-07 13:13:00.000 88 mm[ Hg] Systolic Blood Pressure 2025-03-07 11:44:00.000 110 mm [Hg] Systolic Blood Pressure 2025-03-02 15:21:00.000 122 mm [Hg] Systolic Blood Pressure 2025-02-28 14:55:00.000 140 mm [Hg] Systolic Blood Pressure 2025-02-28 13:14:00.000 104 mm [Hg] Systolic Blood Pressure 2025-02-24 15:23:00.000 123 mm [Hg] Systolic Blood Pressure 2025-02-24 13:08:00.000 118 mm [Hg] Systolic Blood Pressure 2025-02-23 12:41:00.000 96 mm[ Hg] Systolic Blood Pressure 2025-02-17 15:15:00.000 125 mm [Hg] Systolic Blood Pressure 2025-02-17 11:45:00.000 140 mm [Hg] Systolic Blood Pressure 2025-02-14 12:06:00.000 118 mm [Hg] Systolic Blood Pressure 2025-02-10 10:05:00.000 124 mm [Hg] Systolic Blood Pressure 2025-02-07 13:28:00.000 106 mm [Hg] Systolic Blood Pressure 2025-02-06 11:26:00.000 115 mm [Hg] Systolic Blood Pressure 2025-02-04 10:22:00.000 132 mm [Hg] Systolic Blood Pressure 2025-02-03 16:08:00.000 121 mm [Hg] Systolic Blood Pressure 2025-02-02 15:20:00.000 90 mm[ Hg] Systolic Blood Pressure 2025-01-31 12:16:00.000 108 mm [Hg] Systolic Blood Pressure 2025-01-28 16:20:00.000 64 mm[ Hg] Systolic Blood Pressure 2025-01-26 10:37:00.000 114 mm [Hg] Diastolic Blood Pressure 2025-03-22 15:38:00.000 58 mm [Hg] Diastolic Blood Pressure 2025-03-14 15:18:00.000 58 mm [Hg] Diastolic Blood Pressure 2025-03-14 13:39:00.000 46 mm [Hg] Diastolic Blood Pressure 2025-03-07 13:13:00.000 42 mm [Hg] Diastolic Blood Pressure 2025-03-07 11:44:00.000 64 mm [Hg] Diastolic Blood Pressure 2025-03-02 15:21:00.000 56 mm [Hg] Diastolic Blood Pressure 2025-02-28 14:55:00.000 68 mm [Hg] Diastolic Blood Pressure 2025-02-28 13:14:00.000 50 mm [Hg] Diastolic Blood Pressure 2025-02-24 15:23:00.000 65 mm [Hg] Diastolic Blood Pressure 2025-02-24 13:08:00.000 70 mm [Hg] Diastolic Blood Pressure 2025-02-23 12:41:00.000 54 mm [Hg] Diastolic Blood Pressure 2025-02-17 15:15:00.000 62 mm [Hg] Diastolic Blood Pressure 2025-02-17 11:45:00.000 72 mm [Hg] Diastolic Blood Pressure 2025-02-14 12:06:00.000 64 mm [Hg] Diastolic Blood Pressure 2025-02-10 10:05:00.000 60 mm [Hg] Diastolic Blood Pressure 2025-02-07 13:28:00.000 54 mm [Hg] Diastolic Blood Pressure 2025-02-06 11:26:00.000 56 mm [Hg] Diastolic Blood Pressure 2025-02-04 10:22:00.000 60 mm [Hg] Diastolic Blood Pressure 2025-02-03 16:08:00.000 55 mm [Hg] Diastolic Blood Pressure 2025-02-02 15:20:00.000 42 mm [Hg] Diastolic Blood Pressure 2025-01-31 12:16:00.000 60 mm [Hg] Diastolic Blood Pressure 2025-01-28 16:20:00.000 38 mm [Hg] Diastolic Blood Pressure 2025-01-26 10:37:00.000 68 mm [Hg] Plan of Treatment Planned Activity Planned Date Details Comments Future Scheduled Test SKILLED NU RSE TO EVALUATE PATIENT, IDENTIFY PRIMARY AND CO-MORBID CONDITIONS CODED PER CODING GUIDELINES, AND DEVELOP PATIENT SPECIFIC PLAN OF CARE THAT INCLUDES PATIENT GOAL FOR HOME HEALTH. [code = SKILLED NURSE TO EVALUATE PATIENT, IDENTIFY PRIMARY AND CO-MORBID CONDITIONS CODED PER CODING GUIDELINES, AND DEVELOP PATIENT SPECIFIC PLAN OF CARE THAT INCLUDES PATIENT GOAL FOR HOME HEALTH.] Future Scheduled Test SKILLED NU RSE TO PROVIDE TEACHING/REINFORCEMENT RELATED TO URINARY INCONTINENCE. [code = SKILLED NURSE TO PROVIDE TEACHING/REINFORCEMENT RELATED TO URINARY INCONTINENCE.] Future Scheduled Test SKILLED NU RSE TO ASSESS ANXIETY AND PROVIDE ASSISTANCE TO PATIENT FOR UNDERSTANDING AND MANAGEMENT OF FEELINGS. [code = SKILLED NURSE TO ASSESS ANXIETY AND PROVIDE ASSISTANCE TO PATIENT FOR UNDERSTANDING AND MANAGEMENT OF FEELINGS.] Future Scheduled Test OCCUPATION AL THERAPIST TO EVALUATE PATIENT FOR ADLS [code = OCCUPATIONAL THERAPIST TO EVALUATE PATIENT FOR ADLS] Future Scheduled Test SKILLED NU RSE TO INSTRUCT/REINFORCE MEASURES TO PREVENT BARRIERS TO CARE. [code = SKILLED NURSE TO INSTRUCT/REINFORCE MEASURES TO PREVENT BARRIERS TO CARE.] Future Scheduled Test SKILLED NU RSE FOR O/A TO IDENTIFY CHANGES ASSOCIATED WITH METABOLIC ENCEPHALOPATHY AND PROVIDE INSTRUCTION RELATED TO SAFETY MEASURES TO PREVENT INJURY SECONDARY TO IMPAIRED NEUROLOGICAL STATUS. SKILLED NURSE TO REPORT SIGNIFICANT CHANGES OF NEUROLOGIC STATUS TO PHYSICIAN FOR EARLY INTERVENTION. [code = SKILLED NURSE FOR O/A TO IDENTIFY CHANGES ASSOCIATED WITH METABOLIC ENCEPHALOPATHY AND PROVIDE INSTRUCTION RELATED TO SAFETY MEASURES TO PREVENT INJURY SECONDARY TO IMPAIRED NEUROLOGICAL STATUS. SKILLED NURSE TO REPORT SIGNIFICANT CHANGES OF NEUROLOGIC STATUS TO PHYSICIAN FOR EARLY INTERVENTION.] Future Scheduled Test PHYSICAL T HERAPIST TO EVALUATE PATIENT FOR STRENGTHENING AND ENDURANCE [code = PHYSICAL THERAPIST TO EVALUATE PATIENT FOR STRENGTHENING AND ENDURANCE] Future Scheduled Test SKILLED NU RSE TO INSTRUCT PATIENT/CAREGIVER ON SIGNS AND SYMPTOMS AND METHODS TO MANAGE PARKINSON'S DISEASE PROGRESSION. [code = SKILLED NURSE TO INSTRUCT PATIENT/CAREGIVER ON SIGNS AND SYMPTOMS AND METHODS TO MANAGE PARKINSON'S DISEASE PROGRESSION.] Future Scheduled Test SKILLED NU RSE TO PROVIDE TEACHING ON SIGNS AND SYMPTOMS AND MANAGEMENT OF HYPERTENSION. [code = SKILLED NURSE TO PROVIDE TEACHING ON SIGNS AND SYMPTOMS AND MANAGEMENT OF HYPERTENSION.] Future Scheduled Test SKILLED NU RSE FOR OBSERVATION AND ASSESSMENT TO IDENTIFY CHANGES ASSOCIATED WITH ALZHIMERS AND TEACHING RELATED TO SAFETY MEASURES TO PREVENT INJURY, ELOPEMENT RISKS, BEHAVIOR CHANGES, ACTIVITIES, AND ENVIRONMENTAL CHANGES ALL SECONDARY TO IMPAIRED COGNITIVE STATUS. [code = SKILLED NURSE FOR OBSERVATION AND ASSESSMENT TO IDENTIFY CHANGES ASSOCIATED WITH ALZHIMERS AND TEACHING RELATED TO SAFETY MEASURES TO PREVENT INJURY, ELOPEMENT RISKS, BEHAVIOR CHANGES, ACTIVITIES, AND ENVIRONMENTAL CHANGES ALL SECONDARY TO IMPAIRED COGNITIVE STATUS.] Future Scheduled Test SKILLED NU RSE TO INSTRUCT PATIENT/CAREGIVER ON WARNING SIGNS OF CVA, RISK FACTORS, AND METHODS TO MANAGE FPC EFFECTS OF CVA. [code = SKILLED NURSE TO INSTRUCT PATIENT/CAREGIVER ON WARNING SIGNS OF CVA, RISK FACTORS, AND METHODS TO MANAGE SUSTAINMENT LOGISTICS ANALYST EFFECTS OF CVA.] Future Scheduled Test SKILLED NU RSE FOR O/A AND SKILLED TEACHING RELATED TO SIGNS AND SYMPTOMS AND MANAGEMENT OF ANEMIA. [code = SKILLED NURSE FOR O/A AND SKILLED TEACHING RELATED TO SIGNS AND SYMPTOMS AND MANAGEMENT OF ANEMIA.] Future Scheduled Test PATIENT SIMS S A RISK OF HOSPITALIZATION AND ED USE. SKILLED NURSE TO ESTABLISH SUPPORT MEASURES TO MINIMIZE RISK OF HOSPITALIZATION AND ED USE, AND INSTRUCT PATIENT/CAREGIVER ON METHODS TO REDUCE AVOIDABLE HOSPITALIZATION AND ED USE. [code = PATIENT HAS A RISK OF HOSPITALIZATION AND ED USE. SKILLED NURSE TO ESTABLISH SUPPORT MEASURES TO MINIMIZE RISK OF HOSPITALIZATION AND ED USE, AND INSTRUCT PATIENT/CAREGIVER ON METHODS TO REDUCE AVOIDABLE HOSPITALIZATION AND ED USE.] Future Scheduled Test SKILLED NU RSE TO PROVIDE INSTRUCTION TO PATIENT/CAREGIVER RELATED TO DISCHARGE PLANNING. [code = SKILLED NURSE TO PROVIDE INSTRUCTION TO PATIENT/CAREGIVER RELATED TO DISCHARGE PLANNING.] Future Scheduled Test SKILLED NU RSE TO PERFORM ENVIRONMENTAL SAFETY RISK ASSESSMENT AND FALL RISK ASSESSMENT AND PROVIDE INSTRUCTION TO IMPLEMENT ENVIRONMENTAL SAFETY AND FALL PREVENTION STRATEGIES THROUGHOUT THE CERTIFICATION PERIOD. SKILLED NURSE WILL MAINTAIN SITUATIONAL AWARENESS AND WILL NOTIFY CLINICAL BLAST FURNACE KEEPER HELPER AND PHYSICIAN/PROVIDER WITH ANY CHANGE IN CONDITION. [code = SKILLED NURSE TO PERFORM ENVIRONMENTAL SAFETY RISK ASSESSMENT AND FALL RISK ASSESSMENT AND PROVIDE INSTRUCTION TO IMPLEMENT ENVIRONMENTAL SAFETY AND FALL PREVENTION STRATEGIES THROUGHOUT THE CERTIFICATION PERIOD. SKILLED NURSE WILL MAINTAIN SITUATIONAL AWARENESS AND WILL NOTIFY CLINICAL BLAST FURNACE KEEPER HELPER AND PHYSICIAN/PROVIDER WITH ANY CHANGE IN CONDITION.] Future Scheduled Test SKILLED NU RSE FOR OBSERVATION AND ASSESSMENT OF PATIENT S PAIN LEVEL AND EFFECTIVENESS OF PAIN MANAGEMENT REGIMEN. SKILLED NURSE TO INSTRUCT PATIENT/CAREGIVER REGARDING PHARMACOLOGIC AND NON-PHARMACOLOGIC PAIN CONTROL MEASURES. SKILLED NURSE TO REPORT TO PHYSICIAN IF PAIN LEVEL IS OUTSIDE OF ESTABLISHED PARAMETERS. [code = SKILLED NURSE FOR OBSERVATION AND ASSESSMENT OF PATIENT S PAIN LEVEL AND EFFECTIVENESS OF PAIN MANAGEMENT REGIMEN. SKILLED NURSE TO INSTRUCT PATIENT/CAREGIVER REGARDING PHARMACOLOGIC AND NON-PHARMACOLOGIC PAIN CONTROL MEASURES. SKILLED NURSE TO REPORT TO PHYSICIAN IF PAIN LEVEL IS OUTSIDE OF ESTABLISHED PARAMETERS.] Future Scheduled Test SKILLED NU RSE TO ASSESS PATIENT'S SKIN INTEGRITY AND INSTRUCT PATIENT/CAREGIVER ON MEASURES TO PREVENT PRESSURE ULCERS. [code = SKILLED NURSE TO ASSESS PATIENT'S SKIN INTEGRITY AND INSTRUCT PATIENT/CAREGIVER ON MEASURES TO PREVENT PRESSURE ULCERS.] Future Scheduled Test SKILLED NU RSE TO REVIEW PATIENT MEDICATIONS (PRESCRIPTION/OTC). INSTRUCT PATIENT/CAREGIVER ON ALL MEDICATIONS INCLUDING PURPOSE, WHEN TO TAKE, IMPORTANCE OF MEDICATION ADHERENCE, MONITORING OF EFFECTIVENESS, ADVERSE DRUG REACTIONS, POSSIBLE SIDE EFFECTS, AND WHEN TO NOTIFY AGENCY OR PHYSICIAN/PROVIDER OF ANY CONCERNS. [code = SKILLED NURSE TO REVIEW PATIENT MEDICATIONS (PRESCRIPTION/OTC). INSTRUCT PATIENT/CAREGIVER ON ALL MEDICATIONS INCLUDING PURPOSE, WHEN TO TAKE, IMPORTANCE OF MEDICATION ADHERENCE, MONITORING OF EFFECTIVENESS, ADVERSE DRUG REACTIONS, POSSIBLE SIDE EFFECTS, AND WHEN TO NOTIFY AGENCY OR PHYSICIAN/PROVIDER OF ANY CONCERNS.] Future Scheduled Test PHYSICAL T HERAPIST TO EVALUATE PATIENT SECONDARY TO FUNCTIONAL DEFICITS/SAFETY CONCERNS. THIS 79-YEAR-OLD MALE IS REFERRED TO PT AFTER HOSPITAL ADMISSION WITH DIANOSIS OF CEREBRAL INFARCTION AND CVA AND TRANSFERRED TO REHAB FACILITY. PT ASKED PATIENT ABOUT HOSPITAL VISIT AND STATED I WAS TIRED, TO SLEEP AND FOR CHECK UPS. PATIENT AWARE OF PERSON AND PLACE BUT UNAWARE OF CURRENT YEAR ( 2049 ) AND SITUATION BUT KNEW HIS CURRENT ADDRESS AND NAME OF PRESIDENT. PATIENT DENIES PAIN, RECENT FALL. NO CHANGE IN MEDS/MED INS SINCE HOME. 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 PATIENT LIVES IN LARGE PRIVATE HOME AND CURRENTLY HAS LIVE IN [facility] WITH CURRENT PUTTY TINTER MAKER CHAPIN LIVING WITH PATIENT LAST 4 DAYS. CHAPIN STATES PATIENT CAN GET VERY ARGUMENTATIVE NOT WANTING TO TAKE HIS MEDS, WALKING WITHOUT HIS ROLLATOR WALKER UNSAFE AND GOING UP STAIRS. DURING EVALUATION, PATIENT PERSEVERATES ON [facility] ASKING IF PT FROM THERE AND PATIENT STATES HE WENT THERE. PATIENT CONVERSATION MOVES AROUND AND AT TIMES GETS FRUSTRATED/AGITATED WITH HAVING SOMEONE LIVING IN HIS HOME ETC. PATIENT NOT AWARE OF HIS SITUATION AND SAFETY ISSUES. UPCOMING APPOINTMENTS: PCP APPT 02/02. PATIENT NEEDED TO USE BATHROOM AND STOOD WITH CLOSE SUP/CGA AND WALKED 15FT UNSTEADILY WITH ATAXIC GAIT REACHING FOR HARO/FURNITURE AND DID NOT TAKE HIS ROLLATOR WITH HIM. ON RETURN AND RESTING SEVERAL MINUTES, PATIENT VITALS TAKEN SEATED AT REST, LEFT RADIAL PULSE 106 BPM AND RIGHT BRACH BP 64/38 WITH LEFT BRACH 66/40. DISCUSSED WITH STEEL MANAGER AND PATIENT FLUID INTAKE AND NOT DRINKING MUCH AND ASKED ABOUT URINE COLOR PATIENT STATES LIKE MUSTARD. PT TOLD PATIENT NEED FOR PATIENT TO BE TAKEN TO ER PROBABLE LOW FLUID CONTENT CAUSING INCREASED PULSE TO COMPENSATE FOR LOW BP FROM LOW FLUID VOLUME. PATIENT UNDERSTANDING BUT NERVOUS. BEGAN DRINKING WATER AND UNDERSTOOD NEED TO GO WITH PROBABLE RETURN SAME DAY AFTER RECEIVING IV FLUIDS BUT THAT WOULD BE DETERMINED BY ER STAFF. PT CALLED PATIENT'S SON-IN-LAW AND AGREED PATIENT NEEDED TO GO TO ER. WHEN AMBULANCE PERSONNEL ARRIVED, PT ASSISTED WITH SHARING OF ALL VITALS AND PATIENT MEDS/DIAGNOSES AND WAITED UNTIL PATIENT TAKEN BY STRETCHER TO AMBULANCE. PATIENT WILL BENEFIT FROM SKILLED PT INTERVENTION 1-2X/WK FOR TRAINING IN GAIT, TRANSFERS, FUNCTIONAL STRENGHTENING, BALANCE, COORDINATION, FALLS PREVENTION, EDUCATION AND HEP. PATIENT AND FAMILY IN AGREEMENT WITH PT POC. PT TO CALL OVER WEEKEND TO CONFIRM PATIENT RETURN HOME AND PT TO CONTINUE NEXT WEEK. PHYSICAL THERAPY TO ESTABLISH /UPGRADE/DOWNGRADE THERAPEUTIC EXERCISE PROGRAM AND INSTRUCT PATIENT/CAREGIVER ON EXERCISE PRECAUTIONS WITH WRITTEN HOME PROGRAM. MAY INCLUDE AROM, RROM APPROPRIATE TO IMPROVE FUNCTIONAL STRENGTH AND RANGE OF MOTION. PHYSICAL THERAPY TO INSTRUCT PATIENT/CAREGIVER ON SAFE TRANSFER TECHNIQUES USING PROPER BODY MECHANICS AND EQUIPMENT. PHYSICAL THERAPY TO INSTRUCT PATIENT/CAREGIVER ON GAIT TRAINING TECHNIQUES USING APPROPRIATE ASSISTIVE DEVICE, PROPER BODY MECHANICS TO IMPROVE MOBILITY, AND PREVENT INJURY OF PATIENT AND/OR CAREGIVER. PHYSICAL THERAPY TO ASSESS AND RECOMMEND HOME SAFETY ADAPTATIONS AND EDUCATE PATIENT /CAREGIVER ON FALL PREVENTION STRATEGIES. [code = PHYSICAL THERAPIST TO EVALUATE PATIENT SECONDARY TO FUNCTIONAL DEFICITS/SAFETY CONCERNS. THIS 79-YEAR-OLD MALE IS REFERRED TO PT AFTER HOSPITAL ADMISSION WITH DIANOSIS OF CEREBRAL INFARCTION AND CVA AND TRANSFERRED TO REHAB FACILITY. PT ASKED PATIENT ABOUT HOSPITAL VISIT AND STATED I WAS TIRED, TO SLEEP AND FOR CHECK UPS. PATIENT AWARE OF PERSON AND PLACE BUT UNAWARE OF CURRENT YEAR ( 2049 ) AND SITUATION BUT KNEW HIS CURRENT ADDRESS AND NAME OF PRESIDENT. PATIENT DENIES PAIN, RECENT FALL. NO CHANGE IN MEDS/MED INS SINCE HOME. 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 PATIENT LIVES IN LARGE PRIVATE HOME AND CURRENTLY HAS LIVE IN [facility] WITH CURRENT PUTTY TINTER MAKERTeri BRODEEJAYCASSIUS LIVING WITH PATIENT LAST 4 DAYS. CHAPIN STATES PATIENT CAN GET VERY ARGUMENTATIVE NOT WANTING TO TAKE HIS MEDS, WALKING WITHOUT HIS ROLLATOR WALKER UNSAFE AND GOING UP STAIRS. DURING EVALUATION, PATIENT PERSEVERATES ON [facility] ASKING IF PT FROM THERE AND PATIENT STATES HE WENT THERE. PATIENT CONVERSATION MOVES AROUND AND AT TIMES GETS FRUSTRATED/AGITATED WITH HAVING SOMEONE LIVING IN HIS HOME ETC. PATIENT NOT AWARE OF HIS SITUATION AND SAFETY ISSUES. UPCOMING APPOINTMENTS: PCP APPT 02/02. PATIENT NEEDED TO USE BATHROOM AND STOOD WITH CLOSE SUP/CGA AND WALKED 15FT UNSTEADILY WITH ATAXIC GAIT REACHING FOR HARO/FURNITURE AND DID NOT TAKE HIS ROLLATOR WITH HIM. ON RETURN AND RESTING SEVERAL MINUTES, PATIENT VITALS TAKEN SEATED AT REST, LEFT RADIAL PULSE 106 BPM AND RIGHT BRACH BP 64/38 WITH LEFT BRACH 66/40. DISCUSSED WITH STEEL MANAGER AND PATIENT FLUID INTAKE AND NOT DRINKING MUCH AND ASKED ABOUT URINE COLOR PATIENT STATES LIKE MUSTARD. PT TOLD PATIENT NEED FOR PATIENT TO BE TAKEN TO ER PROBABLE LOW FLUID CONTENT CAUSING INCREASED PULSE TO COMPENSATE FOR LOW BP FROM LOW FLUID VOLUME. PATIENT UNDERSTANDING BUT NERVOUS. BEGAN DRINKING WATER AND UNDERSTOOD NEED TO GO WITH PROBABLE RETURN SAME DAY AFTER RECEIVING IV FLUIDS BUT THAT WOULD BE DETERMINED BY ER STAFF. PT CALLED PATIENT'S SON-IN-LAW AND AGREED PATIENT NEEDED TO GO TO ER. WHEN AMBULANCE PERSONNEL ARRIVED, PT ASSISTED WITH SHARING OF ALL VITALS AND PATIENT MEDS/DIAGNOSES AND WAITED UNTIL PATIENT TAKEN BY STRETCHER TO AMBULANCE. PATIENT WILL BENEFIT FROM SKILLED PT INTERVENTION 1-2X/WK FOR TRAINING IN GAIT, TRANSFERS, FUNCTIONAL STRENGHTENING, BALANCE, COORDINATION, FALLS PREVENTION, EDUCATION AND HEP. PATIENT AND FAMILY IN AGREEMENT WITH PT POC. PT TO CALL OVER WEEKEND TO CONFIRM PATIENT RETURN HOME AND PT TO CONTINUE NEXT WEEK. PHYSICAL THERAPY TO ESTABLISH /UPGRADE/DOWNGRADE THERAPEUTIC EXERCISE PROGRAM AND INSTRUCT PATIENT/CAREGIVER ON EXERCISE PRECAUTIONS WITH WRITTEN HOME PROGRAM. MAY INCLUDE AROM, RROM APPROPRIATE TO IMPROVE FUNCTIONAL STRENGTH AND RANGE OF MOTION. PHYSICAL THERAPY TO INSTRUCT PATIENT/CAREGIVER ON SAFE TRANSFER TECHNIQUES USING PROPER BODY MECHANICS AND EQUIPMENT. PHYSICAL THERAPY TO INSTRUCT PATIENT/CAREGIVER ON GAIT TRAINING TECHNIQUES USING APPROPRIATE ASSISTIVE DEVICE, PROPER BODY MECHANICS TO IMPROVE MOBILITY, AND PREVENT INJURY OF PATIENT AND/OR CAREGIVER. PHYSICAL THERAPY TO ASSESS AND RECOMMEND HOME SAFETY ADAPTATIONS AND EDUCATE PATIENT /CAREGIVER ON FALL PREVENTION STRATEGIES.] Future Scheduled Test OCCUPATION AL THERAPIST TO EVALUATE PATIENT SECONDARY TO FUNCTIONAL DEFICITS/SAFETY CONCERNS IDENTIFIED DURING EVALUATION OCCUPATIONAL THERAPY TO INSTRUCT PATIENT/CAREGIVER ON SAFE TRANSFER TECHNIQUES USING PROPER BODY MECHANICS AND EQUIPMENT TO ENHANCE PARTICIPATION IN ADL S. OCCUPATIONAL THERAPY TO ASSESS AND RECOMMEND HOME SAFETY ADAPTATIONS AND EDUCATE PATIENT /CAREGIVER ON FALL PREVENTION STRATEGIES TO ENHANCE PARTICIPATION IN ADL S. OCCUPATIONAL THERAPY TO ASSESS AND RECOMMEND APPROPRIATE ADAPTIVE EQUIPMENT AND INSTRUCT PATIENT/CAREGIVER ON SAFE, PROPER USAGE TO ENHANCE PARTICIPATION IN ADL S. OCCUPATIONAL THERAPY TO PROVIDE PATIENT/CAREGIVER WITH INSTRUCTIONS AND RECOMMENDATIONS TO IMPROVE ADL S INCLUDING WHILE USING APPROPRIATE ADAPTIVE DEVICES RECOMMENDED. OCCUPATIONAL THERAPY TO INSTRUCT PATIENT/CAREGIVER ON TECHNIQUES AND STRATEGIES FOR COGNITIVE IMPAIRMENTS INCLUDING ATTENTION, ORIENTATION, MEMORY, PROBLEM SOLVING, AND THOUGHT ORGANIZATION IN ORDER TO PROMOTE SAFETY AND INDEPENDENCE. SUMMARY OF THERAPY EVAL/ASSESSMENT FINDINGS AND REASON(S) SKILLS OF A THERAPIST ARE INDICATED: OCCUPATIONAL THERAPY EVALUATION: PT. IS A 79 Y/O MALE REFERRED TO [facility] OCCUPATIONAL THERAPY SERVICES AFTER BEING D/C FROM SNF S/P CVA PMHX: FRONTAL/SUBCORTICAL SYNDROME, PARKINSON'S, HLD, HTN, ALZHEIMER'S DISEASE PRECAUTIONS: FALLS, DEMENTIA AVAILABLE DME/AE/SERVICES: ROLLATOR RECOMMENDED DME/AE/SERVICES: 1. RAISED TOILET SEAT BATHROOM DOWNSTAIRS 2. SECOND HAND RAILING GOING UPSTAIRS 3. SHOWER TRANSFER BENCH 4. SHOWER GRAB BARS 5. MOTION SENSOR NIGHT LIGHTS APPOINTMENTS: MALI CLOF: PATIENT HAS 24 HOUR CARE MARCEL RAHMAN/GRANDCHILD (NIECE) -AVILABLE CAREGIVER(S): -COGNITION: PT. STATED THE YEAR 2024, MONTH FEB, DAY FRIDAY, PRESIDENT GABBY. PT. DEMOSTRATES POOR SAFETY AWARENESS, IMPULSIVITY, ST MEMORY LOSS -1 MIN. -FUNCTIONAL MOBILITY: CG WITH ROLLATOR -FUNCTIONAL TRANSFERS: CG -BED MOBILITY: (S) -TOILET TRANSFERS: CG -TOILETING TASK (HYGIENE/PANT MANAGEMENT): (S) -TUB/SHOWER TRANSFERS:PT. IS SPONG BATHING ONLY AT THIS TIME, NEED FOR DME -SHOWERING TASK:N/A -GROOMING:SET UP -SELF FEEDING: SET UP -UB BATHING/DRESSING: SET UP -LB BATHING/DRESSING: CG -MEDICATION MANAGEMENT: (D) -COOKING: (D) -LAUNDRY:(D) -UE ROM:WNL -UE STRENGTH: GROSS UE STRENGTH 4+/5 MMT -FUNCTIONAL MEASURES: MOD. GARRET 82 HOMEBOUND: PT. IS HOMEBOUND REQUIRES THE ASSIST OF ANOTHER TO LEAVE THE HOME, PT. HAS IMP COGNITION AND IMP SAFETY AWARENESS RESULTING IN TAXING EFFORT TO LEAVE THE HOME. POC: PATIENT WOULD BENEFIT FROM [facility] OCCUPATIONAL THERAPY SERVICES. PATIENT TO BENEFIT FROM THE FOLLOWING INTERVENTIONS: ADL RETRAINING, THERA. ACTIVITY, TOILET TRANSFER TRAINING, SHOWER TRANSFER TRAINING, FALL PREVENTION, TEACHING OF ENERGY CONSERVATION/COMPENSATORY STRATGIES, PAIN MANAGEMENT, COGNITIVERETRAINING, /DME TEACHING, CAREGIVER TRAINING, AND DISCHARGE PLANNING. PATIENT/CAREGIVER IN AGREEMENT OF POC AND EVALUATION ON THIS DATE. CASE COMMUNICATION: 1. PT. NIECE- BARRIERS, RECOMMENDATIONS, OT POC [code = OCCUPATIONAL THERAPIST TO EVALUATE PATIENT SECONDARY TO FUNCTIONAL DEFICITS/SAFETY CONCERNS IDENTIFIED DURING EVALUATION OCCUPATIONAL THERAPY TO INSTRUCT PATIENT/CAREGIVER ON SAFE TRANSFER TECHNIQUES USING PROPER BODY MECHANICS AND EQUIPMENT TO ENHANCE PARTICIPATION IN ADL S. OCCUPATIONAL THERAPY TO ASSESS AND RECOMMEND HOME SAFETY ADAPTATIONS AND EDUCATE PATIENT /CAREGIVER ON FALL PREVENTION STRATEGIES TO ENHANCE PARTICIPATION IN ADL S. OCCUPATIONAL THERAPY TO ASSESS AND RECOMMEND APPROPRIATE ADAPTIVE EQUIPMENT AND INSTRUCT PATIENT/CAREGIVER ON SAFE, PROPER USAGE TO ENHANCE PARTICIPATION IN ADL S. OCCUPATIONAL THERAPY TO PROVIDE PATIENT/CAREGIVER WITH INSTRUCTIONS AND RECOMMENDATIONS TO IMPROVE ADL S INCLUDING WHILE USING APPROPRIATE ADAPTIVE DEVICES RECOMMENDED. OCCUPATIONAL THERAPY TO INSTRUCT PATIENT/CAREGIVER ON TECHNIQUES AND STRATEGIES FOR COGNITIVE IMPAIRMENTS INCLUDING ATTENTION, ORIENTATION, MEMORY, PROBLEM SOLVING, AND THOUGHT ORGANIZATION IN ORDER TO PROMOTE SAFETY AND INDEPENDENCE. SUMMARY OF THERAPY EVAL/ASSESSMENT FINDINGS AND REASON(S) SKILLS OF A THERAPIST ARE INDICATED: OCCUPATIONAL THERAPY EVALUATION: PT. IS A 79 Y/O MALE REFERRED TO [facility] OCCUP[facility]ERAPY SERVICES AFTER BEING D/C FROM SNF S/P CVA PMHX: FRONTAL/SUBCORTICAL SYNDROME, PARKINSON'S, HLD, HTN, ALZHEIMER'S DISEASE PRECAUTIONS: FALLS, DEMENTIA AVAILABLE DME/AE/SERVICES: ROLLATOR RECOMMENDED DME/AE/SERVICES: 1. RAISED TOILET SEAT BATHROOM DOWNSTAIRS 2. SECOND HAND RAILING GOING UPSTAIRS 3. SHOWER TRANSFER BENCH 4. SHOWER GRAB BARS 5. MOTION SENSOR NIGHT LIGHTS APPOINTMENTS: TBA CLOF: PATIENT HAS 24 HOUR CARE MARCEL RAHMAN/GRANDCHILD (NIECE) -AVILABLE CAREGIVER(S): -COGNITION: PT. STATED THE YEAR 2024, MONTH FEB, Friday, PRESIDENT GABBY. PT. DEMOSTRATES POOR SAFETY AWARENESS, IMPULSIVITY, ST MEMORY LOSS -1 MIN. -FUNCTIONAL MOBILITY: CG WITH ROLLATOR -FUNCTIONAL TRANSFERS: CG -BED MOBILITY: (S) -TOILET TRANSFERS: CG -TOILETING TASK (HYGIENE/PANT MANAGEMENT): (S) -TUB/SHOWER TRANSFERS:PT. IS SPONG BATHING ONLY AT THIS TIME, NEED FOR DME -SHOWERING TASK:N/A -GROOMING:SET UP -SELF FEEDING: SET UP -UB BATHING/DRESSING: SET UP -LB BATHING/DRESSING: CG -MEDICATION MANAGEMENT: (D) -COOKING: (D) -LAUNDRY:(D) -UE ROM:WNL -UE STRENGTH: GROSS UE STRENGTH 4+/5 MMT -FUNCTIONAL MEASURES: MOD. GARRET 82 HOMEBOUND: PT. IS HOMEBOUND REQUIRES THE ASSIST OF ANOTHER TO LEAVE THE HOME, PT. HAS IMP COGNITION AND IMP SAFETY AWARENESS RESULTING IN TAXING EFFORT TO LEAVE THE HOME. POC: PATIENT WOULD BENEFIT FROM [facility] OCCUPATIONAL THERAPY SERVICES. PATIENT TO BENEFIT FROM THE FOLLOWING INTERVENTIONS: ADL RETRAINING, THERA. ACTIVITY, TOILET TRANSFER TRAINING, SHOWER TRANSFER TRAINING, FALL PREVENTION, TEACHING OF ENERGY CONSERVATION/COMPENSATORY STRATGIES, PAIN MANAGEMENT, COGNITIVERETRAINING, /DME TEACHING, CAREGIVER TRAINING, AND DISCHARGE PLANNING. PATIENT/CAREGIVER IN AGREEMENT OF POC AND EVALUATION ON THIS DATE. CASE COMMUNICATION: 1. PT. JOHNNIE- BARRIERS, RECOMMENDATIONS, OT POC] Goal 2025-03-22 Patient Goal - T O GET ALL STRAIGHTENED OUT AND STOP USING WALKER Goal Provider Goal - A PLAN OF CARE WILL BE ESTABLISHED THAT MEETS PATIENT'S CARE HOME NEEDS AND INCLUDES PATIENT GOAL FOR HOME HEALTH. Goal Provider Goal - PATIENT / CAREGIVER WILL VERBALIZE UNDERSTANDING OF EFFECTS OF URINARY INCONTINENCE BY THE END OF THE CERTIFICATION PERIOD. Goal Provider Goal - SYMPTOMS OF ANXIETY ARE IDENTIFIED AND INTERVENTIONS INITIATED TO ENABLE PATIENT TO UNDERSTAND AND MANAGE FEELINGS THROUGHOUT EPISODE. Goal Provider Goal - OCCUPATIONAL THERAPY EVALUATION TO BE COMPLETED WITH RECOMMENDATIONS AND WRITTEN PLAN OF TREATMENT ESTABLISHED FOR THE PHYSICIAN S SIGNATURE. Goal Provider Goal - PATIENT / CAREGIVER WILL VERBALIZE UNDERSTANDING OF BARRIERS PREVENTING PROPER CARE AND DEMONSTRATE MEASURES TO ELIMINATE THOSE BARRIERS DURING THIS EPISODE. Goal Provider Goal - CHANGES IN NEUROLOGIC STATUS WILL BE IDENTIFIED AND REPORTED TO THE PHYSICIAN FOR PROMPT INTERVENTION OF ASSOCIATED RISK. PATIENT/CAREGIVER WILL VERBALIZE/DEMONSTRATE APPROPRIATE SAFETY MEASURES TO PREVENT INJURY BY THE END OF THE CERTIFICATION PERIOD. Goal Provider Goal - A PHYSICAL THERAPY EVALUATION TO BE COMPLETED WITH RECOMMENDATIONS AND/OR WRITTEN PLAN OF TREATMENT ESTABLISHED FOR PHYSICIAN S SIGNATURE. Goal Provider Goal - PATIENT/CAREGIVER WILL VERBALIZE SIGNS AND SYMPTOMS OF PARKINSON'S DISEASE AND DEMONSTRATE METHODS TO MANAGE DISEASE PROCESS BY END OF CERTIFICATION PERIOD. Goal Provider Goal - PATIENT/CAREGIVER WILL VERBALIZE SIGNS AND SYMPTOMS OF HYPERTENSION AND WILL BE ABLE TO DEMONSTRATE ABILITY TO MANAGE EXACERBATION BY END OF THE EPISODE. Goal Provider Goal - PATIENT/CAREGIVER WILL VERBALIZE /DEMONSTRATE APPROPRIATE ENVIRONMENTAL/SAFETY MODIFICATIONS IN RESPONSE TO BEHAVIOR/COGNITIVE CHANGES ASSOCIATED WITH DEMENTIA DIAGNOSIS THROUGHOUT THE CERTIFICATION PERIOD. Goal Provider Goal - PATIENT/CAREGIVER WILL DEMONSTRATE COMPLIANCE WITH TREATMENT REGIME AND VERBALIZE SIGNS AND SYMPTOMS TO REPORT WELL POSSIBLE COMPLICATIONS OF CVA BY END OF EPISODE. Goal Provider Goal - PATIENT/CARGIVER WILL VERBALIZE UNDERSTANDING OF ANEMIA INCLUDING SIGNS AND SYMPTOMS, MANAGEMENT OF COMPLICATIONS, AND PRESCRIBED TREATMENT REGIMEN BY END OF EPISODE. Goal Provider Goal - PATIENT WILL HAVE SUPPORT MEASURES ESTABLISHED TO PREVENT HOSPITALIZATION AND ED USE AND PATIENT/CAREGIVER WILL VERBALIZE/DEMONSTRATE METHODS TO REDUCE AVOIDABLE HOSPITALIZATION AND ED USE BY END OF EPISODE. Goal Provider Goal - PATIENT/CAREGIVER WILL VERBALIZE UNDERSTANDING OF DISCHARGE PLANNING INSTRUCTIONS BY DATE OF DISCHARGE. Goal Provider Goal - PATIENT/CAREGIVER WILL VERBALIZE/DEMONSTRATE EFFECTIVE ENVIRONMENTAL SAFETY AND FALL PREVENTION STRATEGIES, WILL REMAIN SAFE IN THE COMMUNITY, AND WILL BE FREE OF DANGER TO SELF AND OTHERS THROUGHOUT THE CERTIFICATION PERIOD. Goal Provider Goal - PATIENT/CAREGIVER WILL DEMONSTRATE UNDERSTANDING OF PHARMACOLOGIC AND NONPHARMACOLOGIC PAIN CONTROL MEASURES AND PATIENT WILL HAVE IMPROVEMENT IN PAIN INTERFERING WITH ACTIVITY EVIDENCED BY PAIN AT A LEVEL THAT IS ACCEPTABLE TO THE PATIENT AND PAIN LEVEL WITHIN ESTABLISHED PARAMETERS BY END OF CERTIFICATION PERIOD. Goal Provider Goal - PATIENT/CAREGIVER WILL VERBALIZE UNDERSTANDING OF PRESSURE ULCER PREVENTION BY END OF THE EPISODE. Goal Provider Goal - PATIENT/CAREGIVER WILL VERBALIZE UNDERSTANDING OF EDUCATION PROVIDED ON MEDICATIONS BY THE END OF THE CERTIFICATION PERIOD. Goal Provider Goal - PHYSICAL THERAPY EVALUATION TO BE COMPLETED WITH RECOMMENDATIONS AND/OR WRITTEN TREATMENT PLAN OF CARE ESTABLISHED FOR THE PHYSICIAN S SIGNATURE PATIENT/CAREGIVER WILL PERFORM THERAPEUTIC EXERCISE/S AND DEMONSTRATE PARTICIPATION IN A HOME PROGRAM TO IMPROVE STRENGTH OF HAYLEE HIPS/LES/POSTURAL STABILIZERS OF TRUNK TO IMPROVE GAIT, TRANSFERS, STAIR MGT, BALANCE, FALLS PREVENTION PATIENT/CAREGIVER WILL DEMONSTRATE SAFE TRANSFERS USING APPROPRIATE ASSISTIVE DEVICE, BODY MECHANICS AND EQUIPMENT. PATIENT/CAREGIVER WILL DEMONSTRATE IMPROVED GAIT TECHNIQUES TO MINIMIZE RISK OF INJURY AND ALLOW FULL ACCESS TO ALL AREAS OF HOME, FALLS PREVENTION AND ACCESS TO COMMUNITY PATIENT/CAREGIVER WILL DEMONSTRATE/VERBALIZE UNDERSTANDING OF RECOMMENDATIONS TO INCREASE SAFETY IN THE HOME AND FALL PREVENTION. Goal Provider Goal - OCCUPATIONAL THERAPIST TO EVALUATE PATIENT SECONDARY TO FUNCTIONAL DEFICITS/SAFETY CONCERNS IDENTIFIED DURING EVALUATION. PATIENT/CAREGIVER WILL DEMONSTRATE SAFE TRANSFERS USING APPROPRIATE ASSISTIVE DEVICE, BODY MECHANICS AND EQUIPMENT. CAREGIVER/PATIENT WILL DEMONSTRATE/VERBALIZE UNDERSTANDING OF RECOMMENDATIONS TO INCREASE SAFETY IN THE HOME AND FALL PREVENTION. PATIENT/CAREGIVER WILL DEMONSTRATE PROPER USAGE OF APPROPRIATE ADAPTIVE EQUIPMENT. PATIENT/CAREGIVER WILL DEMONSTRATE IMPROVED ABILITY TO PERFORM ACTIVITIES OF DAILY LIVING. PATIENT/CAREGIVER WILL DEMONSTRATE IMPROVED COGNITION. Reason for Visit MINIMUM ASSIST WITH TRANSFER/AMBULATION/ADLS Progress Notes Progress Notes <paragraph>[Visit Date: 2024 by HARJINDER GLASER RN]:</paragraph><paragraph>DC COMPLETE, PCP AND NEURO UPDATED. MAMI REPORTS GREAT IMPROVEMENT IN BEHAVIORS SINCE STARTING ZYPREXA. HE IS CALMER AND EATING MORE. PATIENT STILL VERBALIZES AMBIVALENCE ABOUT MEDICATIONS IN GENERAL, THIS RN ENCOURAGED HIM TO DISCUSS WITH MD BEFORE STOPPING ANY MEDS AND HE AGREED. BM TODAY , URINE IN URINAL MEDIUM CLEAR YELLOW, MAMI WILL CONTINUE TO ENCOURAGE FLUID INTAKE. FOLLOWING UP WITH NEURO TM. VSS, DENIES PAIN AND SOB. BALANCE WNL. DENIES FALLS. EDUCATED ON HOW TO RESUME [facility] SERVICES, MED REVIEW, HOME SAFETY AND FALL PREV, SS UTI</paragraph> Encounters Start Date/Time End Date/Time Encounter Type Admission Type Attending [facility] Care Department Encounter ID Discharge Date Discharge Status Discharge Condition Discharge Reason Percent Goals Met 2025-01-26 00:00:00 2025-03-22 00:00:00 Outpatient NEW ADMISSION HARJINDER GLASER [facility] [id number] 2025-03-22 00:00:00 DISCHARGE TO HOME OR SELF CARE MINIMUM ASSIST WITH TRANSFER/A MBULATION/ ADLS GOALS MET ( ONLY) 78.57
--- NOTE | 2025-03-23 14:44 | MHC.OFFVIS ---
Intake Visit Reasons: F/U Allergies No Known Allergies Allergy (Verified 11/16/24 14:54) Medication List - Last Reconciled 03/23/25 by Nasrin Hurtado MD aspirin 81 mg PO DAILY clopidogrel 75 mg PO DAILY lisinopril 10 mg PO DAILY HPI Comments Details: He had a right thalamic ischemic infarct 3 wks ago with left hemiparesis while driving to [place]. He is now home since 01/24/25 with 24 hr care. Is getting better. He is on ASA and Plavix. There were concerns about memory and cognitive decline. He does not personally sense significant impairment, but family members and colleagues have observed a decrease in his cognitive sharpness over the past few years. The patient was historically adept at navigating unfamiliar areas but recently needed GPS assistance in new locations. He remains functional in his business and daily life. Previous imaging indicated brain atrophy, prompting further evaluation with an upcoming PET scan. There have been no prior treatments or interventions for cognitive issues, and he does not report any new symptoms affecting his job performance. 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 He is still driving fine. He sleeps 6-7 hours a day. He has no sleep apnea. He walks three quarters of a mile to work and has not seen a decline in his work abilities or in his business skills. There is no family history of dementia. Mother lived to 90, and the father in the 80s. ?Nephew, who is a surgical oncologist says he has noted some decline in his cognitive abilities. 06/04/24 EEG- WNL ?05/30/24 MRI : Diffuse cerebral atrophy and microvacsular changes ?05/11/24 Labs normal. 08/31/24 MMSE 27/30, MOCA 14 [facility] Medical History (Updated 01/25/25 @ 15:33 by Nasrin Hurtado MD) Alzheimer disease MCI (mild cognitive impairment) Social History (Updated 11/15/24 @ 17:43 by Monalisa Spann MA) Patient Tobacco Use Status: Never used Tobacco Review of Systems Const Details: ?General/Constitutional:? Change in appetitedenies.? Chillsdenies.? Fatiguedenies.? Feverdenies.? Weight gaindenies.? Weight lossdenies. ???Sleep:? Difficulty getting to sleepdenies.? Difficulty maintaining sleepdenies?.? Urge to move legsdenies.? Teeth grindingdenies.? Shouting or Kicking during sleepdenies.? Abnormal behavior during sleepdenies.? Excessive sleepdenies.? Snoringdenies.? Daytime sleepinessdenies. ???Respiratory:? Shortness of breathdenies.? Chest paindenies.? Coughdenies. ???Cardiovascular:? Chest pain at restdenies.? Chest pain with exertiondenies.? Claudicationdenies.? Dizzinessdenies.? Fluid accumulation in the legsdenies.? Irregular heartbeatdenies.? Palpitationsdenies. ???Gastrointestinal:? Abdominal paindenies.? Constipationdenies.? Diarrheadenies.? Difficulty swallowingdenies.? Heartburndenies.? Nauseadenies.? Rectal bleedingdenies. ???Genitourinary:? Frequent urinationdenies.? Urgencydenies.? Incontinencedenies.? Erectile Dysfunctiondenies. ???Musculoskeletal:? Neck paindenies.? Back paindenies.? Muscle achesdenies.? Painful jointsdenies.? Sciaticadenies.? Weaknessdenies. ???Neurologic:? Difficulty swallowingdenies.? Balance difficultydenies.? Coordinationnormal.? Difficulty speakingdenies.? Dizzinessdenies.? Faintingdenies.? Gait abnormalitydenies.? Headachedenies.? Loss of strengthdenies.? Loss of use of extremitydenies.? Low back paindenies.? Memory lossdenies.? Seizuresdenies.? Ticsdenies.? Tingling/Numbnessdenies.? Transient loss of visiondenies.? Tremordenies. ???Psychiatric:? Anxietydenies.? Auditory/visual hallucinationsdenies.? Delusionsdenies.? Depressed mooddenies.? Stressorsdenies.? Substance abusedenies.? Suicidal thoughtsdenies. Physical Exam Neuro Other: Neurological: Abnormal neurological findings:??Mental Status:??alert and oriented X person and place but not to month. He knows the year but not the date. He is quite forgetful and repetitive with short-term memory problems 1/3 recall.?Normal attention, and affect.?Cranial Nerves:??Pupils are equal, round and reactive to light. Fundoscopy shows normal disc bilaterally. External occular muscles are intact. Visual murray are full, no ptosis. Face is symmetrical, no facial weakness or droop. Facial sensations are normal. Tongue protrudes in midline. Palate elevates symmetrically. Shoulder shrugging is normal..?Motor Examination:??Subtle downward drift of the left upper extremity with weakness of the left natural resource technician. Normal muscle tone, bulk and strength otherwise,?No atrophy or fasciculations,??Deep tendon reflexes are 2+?,?Plantars are flexor?.?Straight Leg Raising:??90 degrees.?Sensory Exam:??Normal light touch, temperature, pinprick, vibration and joint-position sensations?,?he is in a wheelchair. He gets around with a walker at home with supervision.?Coordination:??no ataxia,?no titubation,?ejfhrn-qg-tqxs mildly impaired on the left, purr-fzov-ueph test and rapid alternating movements were normal.?Gait Exam:? Wheelchair.?Cerebellar Signs:??Extrapyramidal System:??No tremor, rigidity with normal facial expressions,?No bradykinesia, no bradyphrenia. Normal arm swing and posture. ?Speech:??Normal,?no dysphasia or dysarthria..? Mini Mental Status Exam: Level of Consciousness:??Alert.?Orientation:??Knows correct year only, not day and season,?Knows correct city, county and state. Knows correct location and floor.?Registration:??Able to register 3 objects.?Attention:??Serial 7's performed accurately.?Recall:??Able to recall 1 out of 3 objects.?Language:??Normal spontaneous speech, fluency, repetition,naming, comprehension, reading and writing.?Total Score:??24/30.? General Examination: GENERAL APPEARANCE:??normal,?in no acute distress.?HEART:??S1, S2 normal,?no murmurs.?LUNGS:??clear anteriorly and posteriorly.?MUSCULOSKELETAL:??normal.?EXTREMITIES:??no edema.?PSYCH:??alert, oriented,?cognitive function intact,?cooperative with exam.? Cognition (Neuro): abnormal cognition Assessment & Plan Assessment & Plan (1) Alzheimer disease: Code(s): G30.9 - Alzheimer's disease, unspecified; F02.80 - Dementia in other diseases classified elsewhere, unspecified severity, without behavioral disturbance, psychotic disturbance, mood disturbance, and anxiety Category: Medical (2) Stroke: Code(s): I63.9 - Cerebral infarction, unspecified Category: Medical Plan He needs 24 hour supervision. No driving. Went over the results of his PET scan with the family. He has not been informed fully. He is a bit agitated today and does not want to be here. Says he will not take any meds. Coding Level of Care Code Est Pt Level 4 (32466) Diagnoses Alzheimer disease G30.9; F02.80 Stroke I63.9
--- OUTSIDE RECORDS SUMMARY | 2025-03-23 17:52 | XMS_ITS | Clinical Summary ---
Author Organization [facility] Address [address] [place] [address] Care Team Providers Care Railroad Signal Technician Name Role Phone Dominik Lemon Primary Care Provider [phone] Allergies No known active allergies Medications carbidopa-levodo [...] ual Screening 05/12/2024 COVID-19 Vaccine (1 - 2024-2 6 season) 2025 Influenza Vaccine (#1) 2025 Fall Risk Screening 09/24/2025 09/24/2024 Hepatitis B Vaccines Aged Out No long er eligible based on patient's age to complete this topic Insurance Care Teams Railroad Signal Technician Relationship Specialty Start Date End Date Dominik Lemon [address] [place] [id number] PCP - General Internal Medicine 09/08/24
--- OUTSIDE RECORDS SUMMARY | 2025-03-23 17:54 | XMS_ITS | Patient Health Record ---
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
--- OUTSIDE RECORDS SUMMARY | 2025-03-23 17:54 | XMS_ITS | Patient Health Record ---
Author Organization [facility] [place] [place] [facility] [place] Address [address] [facility] [address] [place] [address] Care Team Providers Care Matchbook Maker Name Role Phone [facility] Provider [phone] Chintan Moralez Unavailable [phone] Migration, Provider Unavailable Unavailable Allergies No Known Allergies Reason For Referral No Information Medications Medication SIG (Take, Route, Frequency, Duration) [...] a day; Duration: 90 days 02/24/2025 Active Lisinopril 20 MG Tablet 1 tablet Orally Once a day; Duration: 90 days 02/04/2025 Active Mirtazapine 15 MG Tablet 1 tablet at bed time Orally Once a day; Duration: 90 days 02/04/2025 Active Atorvastatin Calcium 40 MG Tablet 1 tablet Orally Once a day; Duration: 90 days 02/04/2025 Active Docusate Sodium 100 MG Capsule 1 capsule as needed Orally Once a day; Duration: 90 days 02/04/2025 01/30/2026 Active OLANZapine 10 MG Tablet 1 tablet Orally Once a day; Duration: 30 day(s) 03/15/2025 Active Lansoprazole 30 MG Capsule Delayed Release 1 capsule 1/2 to 1 hour before morning meal Orally Once a day; Duration: 90 days 02/04/2025 Active QUEtiapine Fumarate 25 MG Tablet 1 tablet Orally 3 times a day; Duration: 90 days 02/04/2025 Active Social History Section Notes: wine-ocassional no tobacco, drug or caffeine use. Problems Problem Type SNOMED Code ICD Code Onset Dates Problem Status W/U Status Risk Notes Problem Cerebral infarction (067954952) Stroke with cerebral ischemia (I63.9) Active confirmed Vital Signs Heart Rate 75 /min 02/02/2025 Temperature 96.7 degrees Fahrenheit 12/21/2024 Respiratory Rate 18 /min 02/02/2025 Oximetry 100 % 02/02/2025 Blood pressure diastolic 55 mm Hg 02/02/2025 Weight-kg 83.46 kg 12/21/2024 Blood pressure systolic 112 mm Hg 02/02/2025 Weight 184 lbs 12/21/2024 Encounters Encounter Location Date Provider Diagnosis [facility] [place] [address] [place] [phone] 04/12/2024 Provider Migration [facility] [place] [address] [place] [phone] 05/13/2024 Provider Migration [facility] [place] [address] [place] [phone] 05/18/2024 Provider Migration [facility] [place] [address] [place] [phone] 06/22/2024 Chintan Moralez [facility] [place] [address] [place] [phone] 06/22/2024 Provider Migration [facility] [place] [address] [phone] 02/02/2025 [facility] discharge follow-up Z09 and Stroke with cerebral ischemia I63.9 [facility] [place] [address] [place] [phone] [facility] [place] [address] [place] [phone] 02/04/2025 Ave [facility]es [facility] [place] [address] [place] [phone] 01/26/2025 Ave Mendes [facility] [place] [address] [place] [id number] 01/27/2025 Ave Mendes [facility] [place] [address] [place] [phone] 02/04/2025 Ave Mendes [facility] [place] [address] [place] [phone] 02/21/2025 Ave Mendes [facility] [place] [address] [place] [phone] 02/24/2025 Ave Mendes [facility] [place] [address] [place] [phone] 03/07/2025 Ave Mendes [facility] [place] [address] [place] [phone] 03/14/2025 Ave Mendes [facility] [place] [address] [place] [phone] 03/22/2025 Aveshanique Mendes Assessments Encounter Date Diagnosis (ICD Code) Assessment Notes Treatment Notes Treatment Clinical Notes Section Notes 12/21/2024 Well adult health check (ICD-10 - Z00.00) Patient into the office today for a f/u 1. 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 will order basic lab panel 02/02/2025 Hospital discharge follow-up (ICD-10 - Z09) Patient into the office today for f/u of hospitilazion s/p stroke states he was admitted at [facility]. We have been trying for two days to obtain his medical record.. Will continue to try. 1. He was sent to [facility] in [place] following his hospital treatment 2. He has continued issues with short term memory which is affecting his safety at home 3. He has 24 hour care but has had some episodes of aggressive behavior. 02/02/2025 Stroke with cerebral ischemia (ICD-10 - I63.9) Patient into the office today for f/u of hospitilazion s/p stroke states he was admitted at [facility]. We have been trying for two days to obtain his medical record.. Will continue to try. 1. He was sent to [facility] in [place] following his hospital treatment 2. He has continued issues with short term memory which is affecting his safety at home 3. He has 24 hour care but has had some episodes of aggressive behavior. Plan Of Treatment Next Appt Details Provider Name:Ave law, 03/24/2025 11:00:00 AM, [address] [facility], [address], [place], [phone], [phone] Provider Name:Irina Osman, 04/26/2025 01:00:00 PM, [address] [facility], [address], [place], [address], [phone] Insurance Providers Payer Name Payer Address Payer Phone Subscriber Number Group Number Insured Name Patient Relationship to Insured Coverage Start Date Coverage End Date [facility] [address] [place] [phone] [id number] ESTEFANY DUNN Self - patient is the insured Medical (General) History Medical History History ICD Code hyperlipidemia Gout Surgical History Surgery Date(Month/Year) appendectomy
== END 2025-03-23 16:10 | disposition home or self-care (01) ==
LOC: HO.HSM 14:27
PROVIDERS: PCP Internal Medicine; Visit Provider Psychiatry & Neurology Neurology
DX: G30.9 Alzheimer's disease, unspecified (principal); F02.80 Dementia in other diseases classified elsewhere, unspecified severity, without behavioral disturbance, psychotic disturbance, mood disturbance, and anxiety; I63.9 Cerebral infarction, unspecified
CPT/HCPCS: 99214